=== PATIENT | male | born 1935 | race Caucasian/White ===

== ENCOUNTER 2016-10-24 20:34 | Inpatient (IN) | payer MEDICARE ==
[~2016-10-24] VITALS: Ht 182.9 cm; Wt 246.0 kg
[~2016-10-24 20:34] MED LIST: ASCO500 PO; ATOR20TA42 PO; CLON.1 PO; COUM5TAB PO; DORZ1SOL2 EACH EYE; FURO20TA PO; KCL20 PO; LATA0.00 EACH EYE; LEVA500T PO; METO25 PO; MULTCAP14 PO; XANA0.5T PO
[2016-10-24 20:42] VITALS: RESP 22; TEMP 101.7
[2016-10-24 20:50] VITALS: RESP 18; O2SAT 93
[2016-10-24 21:05] VITALS: BP 172/79; PULSE 113; RESP 22; TEMP 101.7; O2SAT 92
[2016-10-24 21:08] LABS: AUTOMATED NEUTROPHIL # 8.5 TH/MM3 (1.8-7.7); BASOPHIL % 0.1 % (0.0-2.0); EOSINOPHIL % 0.1 % (0.0-4.0); HEMATOCRIT 40.1 % (39.0-51.0); LYMPH % 3.6 % (9.0-44.0); LYMPHOCYTE # 0.3 TH/MM3 (1.0-4.8); MEAN CORPUSCULAR HEMOGLOBIN 33.5 PG (27.0-34.0); MEAN CORPUSCULAR HGB CONC 33.8 % (32.0-36.0); MONO % 4.7 % (0.0-8.0); NEUT % 91.5 % (16.0-70.0); PLATELET COUNT 165 TH/MM3 (150-450); RED BLOOD COUNT 4.05 MIL/MM3 (4.50-5.90); RED CELL DISTRIBUTION WIDTH 13.1 % (11.6-17.2); WHITE BLOOD COUNT 9.2 TH/MM3 (4.0-11.0)
--- NOTE | 2016-10-24 21:08 | PD ---
HPI Chief Complaint: Fever Time Seen by Provider: 21:02 Travel History International Travel<30 days: No Contact w/Intl Traveler<30days: No Traveled to known affect area: No History of Present Illness HPI The patient is an 81-year-old female that has had a fever since morning. The highest the temperature when at home was 102. He does not have it a cough, sore throat, ear pain but does have diarrhea. He denies any abdominal pain. He has had an appendectomy and a tumor removed from his abdomen. He does have nausea without vomiting. PFSH Past Medical History Hx Anticoagulant Therapy: Yes Arthritis: Yes (LOW BACK AND NECK) Blood Disorders: No Anxiety: Yes Depression: No Heart Rhythm Problems: Yes (AFIB) Cancer: Yes (PROSTATE ONLY-SEED IMPLANT) Cardiovascular Problems: Yes (A fib) High Cholesterol: Yes Chemotherapy: Yes Chest Pain: No Congestive Heart Failure: No Coronary Artery Disease: Yes Diabetes: No Endocrine: No Gastrointestinal Disorders: Yes (DIVERTICULITIS) GERD: No Glaucoma: No Genitourinary: Yes Hepatitis: No Hiatal Hernia: No Hypertension: Yes Immune Disorder: No Implanted Vascular Access Dvce: Yes Medical other: No Musculoskeletal: Yes (R KNEE REPLACEMENT) Neurologic: No Psychiatric: No Reproductive: No Respiratory: No Radiation Therapy: Yes (radiation seeds) Thyroid Disease: No Tetanus Vaccination: > 5 Years Influenza Vaccination: Yes Past Surgical History Abdominal Surgery: No AICD: No Body Medical Devices: STERNAL WIRES; R KNEE REPLACEMENT Cardiac Surgery: Yes (5 VESSEL HEART BYPASS) Coronary Artery Bypass Graft: Yes (x 5 vessel) Ear Surgery: No Endocrine Surgery: No Eye Surgery: Yes (bilat cataract) Genitourinary Surgery: Yes (PROSTATE CA-RADIATION SEEDS) Joint Replacement: Yes (RIGHT TOTAL KNEE) Oral Surgery: No Pacemaker: No Thoracic Surgery: No Other Surgery: Yes Social History Alcohol Use: No Tobacco Use: No Substance Use: No Allergies-Medications (Allergen,Severity, Reaction): Coded Allergies: onion (Verified Allergy, Severe, severe gi upset, 10/24/16) Reported Meds & Prescriptions Reported Meds & Active Scripts Active Kcl 20 Meq Tab (Potassium Chloride) 20 Meq Tabcr 20 Meq PO DAILY 30 Days Levaquin 500 Mg Tab (Levofloxacin) 500 Mg Tab 500 Mg PO DAILY 6 Days Furosemide 20 Mg Tab 40 Mg PO DAILY 30 Days Coumadin 5 mg (Warfarin Sodium) 5 Mg Tab 5 Mg PO DIRECTED 5mg tue/tue/tue//tue/tue and 7.5mg on sundays Metoprolol Tartrate 25 mg (Metoprolol Tartrate) 25 Mg Tab 25 Mg PO Q12HR Reported Xanax 0.5 mg (Alprazolam) Alprazolam 0.5 mg Tab 1 Tab PO HS PRN Catapres 0.1 mg (Clonidine HCl) 0.1 Mg Tab 1 Tab PO DIRECTED PRN Cosopt (Dorzolamide/Timolol) 5 Ml Soln 1 Drop EACH EYE BID Latanoprost 0.005 % Toshia 0.005 % EACH EYE HS Vitamin C 500 Mg Tab (Ascorbic Acid) 500 Mg Tab 1,000 Mg PO DAILY Multi For Him (Multivitamins/Minerals) For Him Cap 1 Cap PO DAILY Lipitor (Atorvastatin Calcium) 20 Mg Tab 20 Mg PO HS Review of Systems Except as stated in HPI: all other systems reviewed are Neg Physical Exam Narrative GENERAL: The patient is alert, oriented 3, moderately dehydrated appearing in slight apparent distress with his nausea. His vital signs show temperature 101.7 with respirations of 22 and pulse of 113 and blood pressure 172/79 with oximetry 92% on room air. SKIN: Focused skin assessment warm/dry. HEAD: Atraumatic. Normocephalic. EYES: Pupils equal and round. No scleral icterus. No injection or drainage. ENT: No nasal bleeding or discharge. Mucous membranes pink and moist. NECK: Trachea midline. No JVD. CARDIOVASCULAR: Regular rate and rhythm. No murmur appreciated. RESPIRATORY: No accessory muscle use. Clear to auscultation but the patient does not take deep respirations. Breath sounds equal bilaterally. GASTROINTESTINAL: Abdomen soft, non-tender, nondistended. Hepatic and splenic margins not palpable. MUSCULOSKELETAL: No obvious deformities. No clubbing. No cyanosis. No edema. NEUROLOGICAL: Awake and alert. No obvious cranial nerve deficits. Motor grossly within normal limits. Normal speech. PSYCHIATRIC: Appropriate mood and affect; insight and judgment normal. Data Data Last Documented VS Vital Signs Date Time Temp Pulse Resp B/P (MAP) Pulse Ox O2 Delivery O2 Flow Rate FiO2 10/24/16 21:14 101 18 170/74 (106) 93 Room Air 10/24/16 21:05 101.7 Orders Orders Complete Blood Count With Diff (10/24/16 20:47) Comprehensive Metabolic Panel (10/24/16 20:47) Urinalysis - C+S If Indicated (10/24/16 20:47) Lactic Acid Sepsis Protocol (10/24/16 20:47) Blood Culture (10/24/16 20:47) Iv Access Insert/Monitor (10/24/16 20:47) Oximetry (10/24/16 20:47) Blood Glucose (10/24/16 20:47) Chest, Pa & Lat (10/24/16 21:02) Electrocardiogram (10/24/16 20:47) Troponin I (10/24/16 21:56) B-Type Natriuretic Peptide (10/24/16 21:56) Labs Laboratory Tests Test 10/24/16 20:55 10/24/16 20:58 Lactic Acid Level 3.5 mmol/L White Blood Count 9.2 TH/MM3 Red Blood Count 4.05 MIL/MM3 Hemoglobin 13.6 GM/DL Hematocrit 40.1 % Mean Corpuscular Volume 99.0 FL Mean Corpuscular Hemoglobin 33.5 PG Mean Corpuscular Hemoglobin Concent 33.8 % Red Cell Distribution Width 13.1 % Platelet Count 165 TH/MM3 Mean Platelet Volume 7.4 FL Neutrophils (%) (Auto) 91.5 % Lymphocytes (%) (Auto) 3.6 % Monocytes (%) (Auto) 4.7 % Eosinophils (%) (Auto) 0.1 % Basophils (%) (Auto) 0.1 % Neutrophils # (Auto) 8.5 TH/MM3 Lymphocytes # (Auto) 0.3 TH/MM3 Monocytes # (Auto) 0.4 TH/MM3 Eosinophils # (Auto) 0.0 TH/MM3 Basophils # (Auto) 0.0 TH/MM3 CBC Comment DIFF FINAL Differential Comment Blood Urea Nitrogen 25 MG/DL Creatinine 1.40 MG/DL Random Glucose 127 MG/DL Total Protein 7.9 GM/DL Albumin 3.0 GM/DL Calcium Level 9.0 MG/DL Alkaline Phosphatase 62 U/L Aspartate Amino Transf (AST/SGOT) 26 U/L Alanine Aminotransferase (ALT/SGPT) 18 U/L Total Bilirubin 1.6 MG/DL Sodium Level 131 MEQ/L Potassium Level 3.8 MEQ/L Chloride Level 98 MEQ/L Carbon Dioxide Level 21.9 MEQ/L Anion Gap 11 MEQ/L Estimat Glomerular Filtration Rate 49 ML/MIN [facility] Medical Decision Making Medical Screen Exam Complete: Yes Emergency Medical Condition: Yes Medical Record Reviewed: Yes Interpretation(s) The chest x-ray shows right lower lobe pneumonia. The white count is 9200 with 92% neutrophils. The complete metabolic profile shows a total bilirubin 1.6, albumin 3.0, creatinine 1.4 with BUN 25 and sodium 131 but is otherwise normal. The lactic acid is 3.5. The EKG shows atrial fibrillation with response rate of [address] elevation or depression. Oximetry on room air is been running 92-93%. Differential Diagnosis Pneumonia, hypoxemia, sepsis, electrolyte disorder, hypo-/hyperglycemia, renal insufficiency, anemia Narrative Course The patient has a right lower lobe pneumonia. He also qualifies for severe sepsis. Plan: The patient is outpatient acquired pneumonia and will be put on Rocephin and Zithromax. Sepsis Criteria SIRS Criteria (2 or more): Temp > 100.9 or < 96.8, Heart rate over 90, RR > 20 or PaCO2 < 32 Severe Sepsis (+one): Lactate >2 Criteria Outcome: Meets severe sepsis criteria Physician Communication Physician Communication I discussed the patient with Dr. Wilkins, the patient will be admitted to him here at [place]. Diagnosis Primary Impression: Severe sepsis Additional Impression: Right lower lobe pneumonia Admitting Information Admitting Physician Requests: Admit Dagoberto Ellsworth MD Oct 24, 2016 21:08
[2016-10-24 21:14] VITALS: BP 170/74; PULSE 101; RESP 18; O2SAT 93
[2016-10-24 21:17] LABS: HEMO FLAGS DIFF FINAL
[2016-10-24 21:18] LABS: CHLORIDE 98 MEQ/L (98-107); POTASSIUM 3.8 MEQ/L (3.5-5.1); SODIUM (NA) 131 MEQ/L (136-145)
[2016-10-24 21:21] LABS: ANION GAP 11 MEQ/L (5-15); BICARBONATE 21.9 MEQ/L (21.0-32.0); BLOOD UREA NITROGEN 25 MG/DL (7-18)
[2016-10-24 21:24] LABS: ALT (GPT) 18 U/L (12-78); AST (GOT) 26 U/L (15-37)
[2016-10-24 21:25] LABS: GLOMERULAR FILTRATION RATE 49 ML/MIN (>89)
[2016-10-24 21:26] LABS: TOTAL BILIRUBIN ADULT 1.6 MG/DL (0.2-1.0)
[2016-10-24 21:27] LABS: ALKALINE PHOSPHATASE 62 U/L (45-117)
--- NOTE | 2016-10-24 21:40 | RADRPT ---
EXAM DATE/TIME: 10/24/2016 21:11 [facility] COMPARISON: CHEST SINGLE AP, October 06, 2015, 18:17. INDICATIONS : Shortness of breath. MEDICAL HISTORY : Hypertension. Coronary artery disease. SURGICAL HISTORY : CABG. ENCOUNTER: Initial ACUITY: 1 day PAIN SCORE: 0/10 LOCATION: Bilateral chest FINDINGS: AP and lateral views the chest were obtained and demonstrate new consolidative opacity in the right l ower lobe. The patient is status post median sternotomy there is moderate cardiomegaly. The left lung is clear. There is no perihilar edema. The bony thorax is otherwise unremarkable. CONCLUSION: 1. Consolidative opacity in the right lower lobe most characteristic of pneumonia. 2. Heart immediately with no perihilar edema. Jakob Camejo MD on October 24, 2016 at 21:37 Board Certified Radiologist. This report was verified electronically.
[2016-10-24] MEDS ORDERED: cefTRIAXone INJ 2,000 MG in SODIUM CHLORIDE 0.9% INJ 100 ML IV ONE (22:15)
[2016-10-24] MEDS ORDERED: SODIUM CHLORIDE 0.9% FLUSH 10 ML FLUSH IVF PRN (22:15)
[2016-10-24] MEDS ORDERED: AZITHROMYCIN INJ 500 MG in SODIUM CHLOR 0.9% 250 ML INJ 250 ML IV ONE (22:15)
[2016-10-24 22:21] VITALS: BP 184/92; PULSE 107; RESP 18; O2SAT 95
[2016-10-24 23:03] LABS: LACTIC ACID GHOST NOT REPORTABLE
[2016-10-24] MEDS ORDERED: HYDROmorphone HCL PF 1 MG/ML VIAL IV PRN (23:30)
[2016-10-24] MEDS ORDERED: cloNIDine HCL 0.1 MG TAB PO PRN (23:30)
[2016-10-24] MEDS ORDERED: NALOXONE HCL 0.4 MG/ML AMP IV PRN (23:30)
[2016-10-24] MEDS ORDERED: SODIUM CHLORIDE 0.9% FLUSH 10 ML FLUSH IV FLUSH PRN (23:30)
[2016-10-24] MEDS ORDERED: LACTULOSE SYRUP 20 GM/30 ML CUP PO PRN (23:30)
[2016-10-24] MEDS ORDERED: BISACODYL 10 MG SUPP RECTAL PRN (23:30)
[2016-10-24] MEDS ORDERED: ONDANSETRON HCL 4 MG/2 ML VIAL IVP PRN (23:30)
[2016-10-24] MEDS ORDERED: SENNOSIDES 8.6 MG TAB PO PRN (23:30)
[2016-10-24] MEDS ORDERED: MAGNESIUM HYDROXIDE SUSP 30 ML CUP PO PRN (23:30)
[2016-10-24] MEDS ORDERED: ALPRAZolam 0.5 MG TAB PO PRN (23:30)
--- NOTE | 2016-10-24 23:34 | HHI.HP ---
HPI Service [facility] Hospitalists Primary Care Physician Leonardo Negrete MD Admission Diagnosis severe sepsis, right lower lobe pneumonia Chief Complaint: fever chills since Travel History International Travel<30 Days: No Contact w/Intl Traveler <30 Da: No Traveled to Known Affected Are: No Sepsis Criteria SIRS Criteria (2 or more): Temp > 100.9 or < 96.8, Heart rate over 90 Sepsis Criteria (SIRS+source): Infect source susp/known Severe Sepsis (+one): Lactate >2 History of Present Illness The patient is an 81-year-old female that has had a fever since morning. The highest the temperature when at home was 102. He does not have it a cough, sore throat, ear pain but does have some loose stool. He denies any abdominal pain. He has had an appendectomy and a tumor removed from his abdomen. He does have nausea without vomiting. Patient stated went to a dentist and had xray showed some abnormality rt upper jaw and went to oral surgeon and said needed further evaluation. Patient also complaining overall not feeling well. In er had chest xray showing rt lower lobe pneumonia. Will admit for IV antibiotics and further work up will need CT jaw for evaluation of ? abnormality in rt jaw. Patient will also get CT abd/pelvis for evaluation of loose stool. Review of Systems Constitutional: COMPLAINS OF: Diaphoretic episodes, Fatigue, Fever, Chills Past Family Social History Past Medical History atrial fib,djd,prostate ca with seed implant hypertension,hyperlipidemia,cad diverticulitis uti Past Surgical History rt knee ,abd surgery 5 vessel bypass Reported Medications Kcl 20 Meq Tab (Potassium Chloride) 20 Meq Tabcr 20 Meq PO DAILY 30 Days Levaquin 500 Mg Tab (Levofloxacin) 500 Mg Tab 500 Mg PO DAILY 6 Days Furosemide 20 Mg Tab 40 Mg PO DAILY 30 Days Coumadin 5 mg (Warfarin Sodium) 5 Mg Tab 5 Mg PO DIRECTED 5mg tue/tue/tue//tue/tue and 7.5mg on sundays Metoprolol Tartrate 25 mg (Metoprolol Tartrate) 25 Mg Tab 25 Mg PO Q12HR Reported Xanax 0.5 mg (Alprazolam) Alprazolam 0.5 mg Tab 1 Tab PO HS PRN Catapres 0.1 mg (Clonidine HCl) 0.1 Mg Tab 1 Tab PO DIRECTED PRN Cosopt (Dorzolamide/Timolol) 5 Ml Soln 1 Drop EACH EYE BID Latanoprost 0.005 % Toshia 0.005 % EACH EYE HS Vitamin C 500 Mg Tab (Ascorbic Acid) 500 Mg Tab 1,000 Mg PO DAILY Multi For Him (Multivitamins/Minerals) For Him Cap 1 Cap PO DAILY Lipitor (Atorvastatin Calcium) 20 M Allergies: Coded Allergies: onion (Verified Allergy, Severe, severe gi upset, 10/24/16) Social History NS,ND Physical Exam Vital Signs Vital Signs Date Time Temp Pulse Resp B/P (MAP) Pulse Ox O2 Delivery O2 Flow Rate FiO2 10/24/16 22:21 107 18 184/92 (122) 95 Room Air 10/24/16 21:14 101 18 170/74 (106) 93 Room Air 10/24/16 21:05 101.7 113 22 172/79 (110) 92 Room Air 10/24/16 20:55 22 92 10/24/16 20:50 18 93 Room Air 10/24/16 20:42 101.7 22 Physical Exam GENERAL: This is a well-nourished, well-developed patient, in no apparent distress. SKIN: No rashes, ecchymoses or lesions. Cool and dry. HEAD: Atraumatic. Normocephalic. No temporal or scalp tenderness. EYES: Pupils equal round and reactive. Extraocular motions intact. No scleral icterus. No injection or drainage. ENT: Nose without bleeding, purulent drainage or septal hematoma. Throat without erythema, tonsillar hypertrophy or exudate. Uvula midline. Airway patent. NECK: Trachea midline. No JVD or lymphadenopathy. Supple, nontender, no meningeal signs. CARDIOVASCULAR: Regular rate and rhythm without murmurs, gallops, or rubs. RESPIRATORY: Clear to auscultation. Breath sounds decrease rt lower lobe with rhonchi base GASTROINTESTINAL: Abdomen soft, non-tender, nondistended. No hepato-splenomegaly , or palpable masses. No guarding. MUSCULOSKELETAL: Extremities without clubbing, cyanosis, or edema. No joint tenderness, effusion, or edema noted. No calf tenderness. Negative Homans sign bilaterally. NEUROLOGICAL: Awake and alert. Cranial nerves II through XII intact. Motor and sensory grossly within normal limits. Five out of 5 muscle strength in all muscle groups. Normal speech. Laboratory Laboratory Tests Test 10/24/16 20:55 10/24/16 20:58 Lactic Acid Level 3.5 B-Type Natriuretic Peptide 231 White Blood Count 9.2 Red Blood Count 4.05 Hemoglobin 13.6 Hematocrit 40.1 Mean Corpuscular Volume 99.0 Mean Corpuscular Hemoglobin 33.5 Mean Corpuscular Hemoglobin Concent 33.8 Red Cell Distribution Width 13.1 Platelet Count 165 Mean Platelet Volume 7.4 Neutrophils (%) (Auto) 91.5 Lymphocytes (%) (Auto) 3.6 Monocytes (%) (Auto) 4.7 Eosinophils (%) (Auto) 0.1 Basophils (%) (Auto) 0.1 Neutrophils # (Auto) 8.5 Lymphocytes # (Auto) 0.3 Monocytes # (Auto) 0.4 Eosinophils # (Auto) 0.0 Basophils # (Auto) 0.0 CBC Comment DIFF FINAL Differential Comment Blood Urea Nitrogen 25 Creatinine 1.40 Random Glucose 127 Total Protein 7.9 Albumin 3.0 Calcium Level 9.0 Alkaline Phosphatase 62 Aspartate Amino Transf (AST/SGOT) 26 Alanine Aminotransferase (ALT/SGPT) 18 Total Bilirubin 1.6 Sodium Level 131 Potassium Level 3.8 Chloride Level 98 Carbon Dioxide Level 21.9 Anion Gap 11 Estimat Glomerular Filtration Rate 49 Troponin I 0.05 Date/Time Source Procedure Growth Status 10/24/16 20:56 Blood Peripheral Aerobic Blood Culture Pending Received 10/24/16 20:56 Blood Peripheral Anaerobic Blood Culture Pending Received Result Diagram: 10/24/16205710/24/162057 Imaging Last 24 hours Impressions Chest X-Ray 10/24/162101 Signed Impressions: Service Date/Time: Monday, October 24, 2016 21:11 - CONCLUSION: 1. Consolidative opacity in the right lower lobe most characteristic of pneumonia. 2. Heart immediately with no perihilar edema. Jakob Camejo MD Course in er started on rocephin and zithromax Caprini VTE Risk Assessment Caprini VTE Risk Assessment: Mod/High Risk (score >= 2) Caprini Risk Assessment Model Point Value = 1 Point Value = 2 Point Value = 3 Point Value = 5 Age 41-60 Minor surgery BMI > 25 kg/m2 Swollen legs Varicose veins or History of unexplained or recurrent spontaneous Oral contraceptives or hormone replacement Sepsis (< 1 month) Serious lung disease, including pneumonia (< 1 month) Abnormal pulmonary function Acute myocardial infarction Congestive heart failure (< 1 month) History of inflammatory bowel disease Medical patient at bed rest Age 61-74 Arthroscopic surgery Major open surgery (> 45 min) Laparoscopic surgery (> 45 min) Malignancy Confined to bed (> 72 hours) Immobilizing plaster cast Central venous access Age >= 75 History of VTE Family history of VTE Factor V Leiden Prothrombin [id number] Lupus anticoagulant Anticardiolipin antibodies Elevated serum homocysteine Heparin-induced thrombocytopenia Other congenital or acquired thrombophilia Stroke (< 1 month) Elective arthroplasty Hip, pelvis, or leg fracture Acute spinal cord injury (< 1 month) Prophylaxis Regimen Total Risk Factor Score Risk Level Prophylaxis Regimen 0-1 Low Early ambulation 2 Moderate Order ONE of the following: *Sequential Compression Device (SCD) *Heparin 5000 units SQ BID 3-4 Higher Order ONE of the following medications: *Heparin 5000 units SQ TID *Enoxaparin/Lovenox 40 mg SQ daily (WT < 150 kg, CrCl > 30 mL/min) *Enoxaparin/Lovenox 30 mg SQ daily (WT < 150 kg, CrCl > 10-29 mL/min) *Enoxaparin/Lovenox 30 mg SQ BID (WT < 150 kg, CrCl > 30 mL/min) AND/OR *Sequential Compression Device (SCD) 5 or more Highest Order ONE of the following medications: *Heparin 5000 units SQ TID (Preferred with Epidurals) *Enoxaparin/Lovenox 40 mg SQ daily (WT < 150 kg, CrCl > 30 mL/min) *Enoxaparin/Lovenox 30 mg SQ daily (WT < 150 kg, CrCl > 10-29 mL/min) *Enoxaparin/Lovenox 30 mg SQ BID (WT < 150 kg, CrCl > 30 mL/min) AND *Sequential Compression Device (SCD) Assessment and Plan Problem List: (1) Right lower lobe pneumonia ICD Codes: J18.1 - Lobar pneumonia, unspecified organism Status: Acute Plan: continue rocephin and zithromax IV (2) Jaw symptom ICD Codes: R68.84 - Jaw pain Plan: not sure what was seen on dental xray will get CT jaw for evaluation (3) Severe sepsis ICD Codes: A41.9 - Sepsis, unspecified organism; R65.20 - Severe sepsis without septic shock Status: Acute Plan: follow labs continue antibiotics (4) Atrial fibrillation, chronic ICD Codes: I48.2 - Chronic atrial fibrillation Status: Chronic Plan: continue current meds follow inr (5) Generalized weakness ICD Codes: R53.1 - Weakness Status: Acute Plan: continue IV fluid (6) Diarrhea ICD Codes: R19.7 - Diarrhea, unspecified Plan: did have some loose stool will check stool studies may need CT abdomen Assessment and Plan further plan as case develops Code Status full Discussed Condition With patient and Physician Certification 2 Midnight Certification Type: Admission for Inpatient Services Order for Inpatient Services The services are ordered in accordance with Medicare regulations or non- Medicare payer requirements, as applicable. In the case of services not specified as inpatient-only, they are appropriately provided as inpatient services in accordance with the 2-midnight benchmark. Estimated LOS (days): 3 3 days is the estimated time the patient will need to remain in the hospital, assuming treatment plan goals are met and no additional complications. Post-Hospital Plan: Not yet determined Leonardo Negrete MD Oct 24, 2016 23:34
[2016-10-25] VITALS (17 sets, daily range): BP systolic 104–190; BP diastolic 60–118; PULSE 79–108; RESP 17–28; TEMP 98.3–101.8; O2SAT 90–97
[2016-10-25] MEDS ORDERED: ASCO500T PO (00:04)
[2016-10-25] MEDS ORDERED: POTA-163 PO (00:04)
[2016-10-25] MEDS ORDERED: ALPR0.5T3 PO (00:04)
[2016-10-25] MEDS ORDERED: CLON0.1T PO (00:04)
[2016-10-25] MEDS ORDERED: COUM7.5T PO (00:04)
[2016-10-25] MEDS ORDERED: DORZ2SOL7 EACH EYE (00:04)
[2016-10-25] MEDS ORDERED: COUM5TAB PO (00:04)
[2016-10-25] MEDS ORDERED: FURO1TAB60 PO (00:04)
[2016-10-25] MEDS ORDERED: METO25TA3 PO (00:04)
[2016-10-25] MEDS ORDERED: LATA0.002 EACH EYE (00:04)
[2016-10-25] MEDS ORDERED: MULT-65 PO (00:04)
[2016-10-25] MEDS ORDERED: ATOR20TA15 PO (00:04)
[2016-10-25] MEDS: SODIUM CHLOR 0.45% 1000 ML INJ 1,000 ML IV SCH ×2 (01:09→13:54)
[2016-10-25] MEDS: ACETAMINOPHEN 325 MG TAB PO PRN ×3 (05:30→20:04)
[2016-10-25 06:50] LABS: AUTOMATED NEUTROPHIL # 8.5 TH/MM3 (1.8-7.7); HEMATOCRIT 34.1 % (39.0-51.0); LYMPH % 3.4 % (9.0-44.0); LYMPHOCYTE # 0.3 TH/MM3 (1.0-4.8); MEAN CELL VOLUME 97.2 FL (80.0-100.0); MEAN CORPUSCULAR HGB CONC 34.9 % (32.0-36.0); MONO % 4.8 % (0.0-8.0); NEUT % 91.8 % (16.0-70.0); PLATELET COUNT 131 TH/MM3 (150-450); RED BLOOD COUNT 3.51 MIL/MM3 (4.50-5.90); RED CELL DISTRIBUTION WIDTH 12.7 % (11.6-17.2); WHITE BLOOD COUNT 9.2 TH/MM3 (4.0-11.0)
[2016-10-25 06:57] LABS: CHLORIDE 99 MEQ/L (98-107); POTASSIUM 3.3 MEQ/L (3.5-5.1); SODIUM (NA) 133 MEQ/L (136-145)
[2016-10-25 06:58] LABS: HEMO FLAGS DIFF FINAL
[2016-10-25 07:00] LABS: INTERNATIONAL NORMALIZED RATIO 2.8 RATIO; PROTHROMBIN TIME - PATIENT 32.1 SEC (9.8-11.6)
[2016-10-25 07:02] LABS: ANION GAP 11 MEQ/L (5-15); BICARBONATE 22.9 MEQ/L (21.0-32.0); BLOOD UREA NITROGEN 26 MG/DL (7-18)
[2016-10-25 07:05] LABS: ALT (GPT) 18 U/L (12-78); AST (GOT) 31 U/L (15-37); GLOMERULAR FILTRATION RATE 58 ML/MIN (>89)
[2016-10-25 07:07] LABS: TOTAL BILIRUBIN ADULT 1.3 MG/DL (0.2-1.0)
[2016-10-25 07:08] LABS: ALKALINE PHOSPHATASE 50 U/L (45-117)
[2016-10-25] MEDS ORDERED: FUROSEMIDE 20 MG TAB PO SCH (09:00)
[2016-10-25] MEDS ORDERED: DORZOLAMIDE/TIMOLOL OPTH SOLN 10 ML BTL EACH EYE SCH (09:00)
[2016-10-25] MEDS: DORZOLAMIDE/TIMOLOL OPTH SOLN 10 ML BTL EACH EYE SCH ×2 (09:00→20:03)
[2016-10-25] MEDS ORDERED: METOPROLOL TARTRATE 25 MG TAB PO SCH (09:00)
[2016-10-25] MEDS: DOCUSATE SODIUM 50 MG/SENNA 8.6 MG TAB PO SCH ×2 (09:00→20:04)
[2016-10-25] MEDS ORDERED: ASCORBIC ACID 500 MG TAB PO SCH (09:00)
[2016-10-25] MEDS ORDERED: POTASSIUM CHLORIDE 20 MEQ CONTROLLED RELEASE TAB PO SCH ×2 (09:00)
[2016-10-25] MEDS ORDERED: MULTIVITAMINS/MINERALS THERAPEUTIC TAB PO SCH (09:00)
[2016-10-25] MEDS: SODIUM CHLORIDE 0.9% FLUSH 10 ML FLUSH IV FLUSH SCH ×2 (09:00→20:05)
[2016-10-25] MEDS: MULTIVITAMINS/MINERALS THERAPEUTIC TAB PO SCH (09:51)
[2016-10-25] MEDS: METOPROLOL TARTRATE 25 MG TAB PO SCH ×2 (09:51→20:05)
[2016-10-25] MEDS: ASCORBIC ACID 500 MG TAB PO SCH (09:51)
[2016-10-25] MEDS: FUROSEMIDE 40 MG TAB PO SCH (09:51)
--- NOTE | 2016-10-25 11:14 | HHI.PR ---
Subjective Remarks Patient about the same , says he is a little better,she brought a copy of xray from dentist and may have abscess in rt jaw area discussed with radiology will get CT with contrast to evaluate. For now continue rocephin and zithromax . Objective Vitals GENERAL: SKIN: Warm and dry. HEAD: Atraumatic. Normocephalic. EYES: Pupils equal and round. No scleral icterus. No injection or drainage. ENT: No nasal bleeding or discharge. Mucous membranes pink and moist. NECK: Trachea midline. No JVD. CARDIOVASCULAR: Regular rate and rhythm. RESPIRATORY: No accessory muscle use. Decrease breath sounds and rhonchi rt base GASTROINTESTINAL: Abdomen soft, non-tender, nondistended. Hepatic and splenic margins not palpable. MUSCULOSKELETAL: Extremities without clubbing, cyanosis, or edema. No obvious deformities. NEUROLOGICAL: Awake and alert. No obvious cranial nerve deficits. Motor grossly within normal limits. Five out of 5 muscle strength in the arms and legs. Normal speech. PSYCHIATRIC: Appropriate mood and affect; insight and judgment normal. Vital Signs Date Time Temp Pulse Resp B/P (MAP) Pulse Ox O2 Delivery O2 Flow Rate FiO2 10/25/16 10:27 79 10/25/16 08:00 99.4 108 18 136/72 (93) 92 10/25/16 04:00 101.8 107 28 158/75 (102) 90 10/25/16 02:55 94 21 10/25/16 01:00 97 10/25/16 00:40 106 18 94 10/25/16 00:17 98 18 190/77 (114) 94 Room Air 10/25/16 00:00 98.8 84 22 167/118 (134) 94 10/24/16 22:21 107 18 184/92 (122) 95 Room Air 10/24/16 21:14 101 18 170/74 (106) 93 Room Air 10/24/16 21:05 101.7 113 22 172/79 (110) 92 Room Air 10/24/16 20:55 22 92 10/24/16 20:50 18 93 Room Air 10/24/16 20:42 101.7 22 Result Diagram: 10/25/16 0637 10/25/16 0637 Imaging Last 24 hours Impressions Chest X-Ray 10/24/162101 Signed Impressions: Service Date/Time: Monday, October 24, 2016 21:11 - CONCLUSION: 1. Consolidative opacity in the right lower lobe most characteristic of pneumonia. 2. Heart immediately with no perihilar edema. Jakob Camejo MD A/P Problem List: (1) Right lower lobe pneumonia ICD Codes: J18.1 - Lobar pneumonia, unspecified organism Status: Acute Plan: continue rocephin and zithromax IV (2) Jaw symptom ICD Codes: R68.84 - Jaw pain Plan: not sure what was seen on dental xray will get CT jaw for evaluation (3) Severe sepsis ICD Codes: A41.9 - Sepsis, unspecified organism; R65.20 - Severe sepsis without septic shock Status: Acute Plan: follow labs continue antibiotics (4) Atrial fibrillation, chronic ICD Codes: I48.2 - Chronic atrial fibrillation Status: Chronic Plan: continue current meds follow inr (5) Generalized weakness ICD Codes: R53.1 - Weakness Status: Acute Plan: continue IV fluid (6) Diarrhea ICD Codes: R19.7 - Diarrhea, unspecified Plan: did have some loose stool will check stool studies may need CT abdomen Leonardo Negrete MD Oct 25, 2016 11:14
[2016-10-25] MEDS ORDERED: IOHEXOL 350 MG/ML 10 ML VIAL (for RAD DIAG) IVCONTRAST ONE (13:42)
--- NOTE | 2016-10-25 13:57 | RADRPT ---
EXAM DATE/TIME: 10/25/2016 13:25 [facility] COMPARISON: No previous studies available for comparison. INDICATIONS : Right mandible abscess and left sided cyst per patient dental xray. IV CONTRAST: 85 cc Omnipaque 350 (iohexol) IV RADIATION DOSE: 22.64 CTDIvol (mGy) MEDICAL HISTORY : Cardiovascular disease. Hypertension. Carcinoma, prostate. SURGICAL HISTORY : CABG ENCOUNTER: Initial ACUITY: 1 day PAIN SCALE: 4/10 LOCATION: Bilateral TECHNIQUE: Volumetric scanning of the neck was performed. Using automated exposure control and adjustment of th e mA and/or kV according to patient size, radiation dose was kept as low as reasonably achievable to obtain optimal diagnostic quality images. DICOM format image data is available electronically for r eview and comparison. FINDINGS: Extensive artifact is present about the right mandible. I don't see as soft tissue abscess. I canno t exclude the bony process. There is an oblong cystic mass in the angle of left mandible that is expanding bone rather than destr oying bone. The nasopharynx and oropharynx are unremarkable Reason for vocal cords appears normal There is no adenopathy appreciated. CONCLUSION: I cannot confirm an abscess. Abnormal mass expanding bone left mandible as described above. Terry Uribe MD FACR on October 25, 2016 at 13:52 Board Certified Radiologist. This report was verified electronically.
[2016-10-25 14:48] LABS: BLOOD, URINE SMALL (NEG); GLUCOSE,URINE NEG (NEG); KETONE, URINE NEG (NEG); NITRITE,URINE NEG (NEG)
[2016-10-25 14:54] LABS: URINE COLOR YELLOW (YELLW/STRAW)
[2016-10-25 14:55] LABS: MUCUS URINE FEW /lpf (OCC)
[2016-10-25 14:56] LABS: WBC, URINE 0-2 /hpf (0-5); WHITE BLOOD CELL CAST, URINE 0-2 /lpf
[2016-10-25 14:57] LABS: COMMENT (UR) CULT NOT INDICATED; CULTURE IF INDICATED CULT NOT INDICATED; RBC, URINE 0-3 /hpf (0-3); SQUAMOUS EPITHELIAL CELL URINE 0-5 /hpf (0-5)
[2016-10-25] MEDS: RESP: ALBUTEROL 2.5 MG/IPRATROPIUM 0.5 MG NEB (PRN) NEB ×2 (15:13→22:13)
[2016-10-25] MEDS ORDERED: WARFARIN SOD 5 MG TAB PO SCH ×3 (16:00)
[2016-10-25] MEDS: LATANOPROST 0.005% OPHT SOLN 2.5 ML BTL EACH EYE SCH (20:03)
[2016-10-25] MEDS: ALPRAZolam 0.5 MG TAB PO SCH (20:04)
[2016-10-25] MEDS: ATORVASTATIN 20 MG TAB PO SCH (20:04)
[2016-10-25] MEDS: POTASSIUM CHLORIDE 20 MEQ CONTROLLED RELEASE TAB PO SCH (20:04)
--- NOTE | 2016-10-25 20:08 | EKG ---
Date Performed: 10/24/2016 Time Performed: 20:47:16 PTAGE: 81 years EKG: ATRIAL FIBRILLATION WITH RAPID VENTRICULAR RESPONSE INFERIOR MYOCARDIAL INFARCTION ABNORMAL ECG PREVIOUS TRACING : 09/13/2015 08.49 DOCTOR: Felix Alberto Interpretating Date/Time 10/25/2016 20:04:59
--- NOTE | 2016-10-25 20:35 | MB ---
cc: YANG VIZCARRA DATE OF CONSULTATION 10/25/[address] Negrete. REASON FOR CONSULTATION Evaluate for pneumonia. HISTORY OF PRESENT ILLNESS Mr. Lang is a pleasant 81-year-old male with history of coronary disease status post CABG times 5 done about 20 years ago. He has history of hypertension, CA of the prostate. The patient recently went to see his dentist, was sent to the oral surgeon. He was found have possible abscess in two teeth on the right side and abnormality of the left jaw. Because of fever the patient came to the hospital. He had a workup done. IMAGING His chest x-ray shows he has right lung pneumonia. CT scan of the neck shows abnormal mass, expanding bone in the left mandible. Abscess is not ruled out. LABORATORY DATA His blood cultures so far are negative. His INR is 2.8. CBC showed WBC count of 9.12, hemoglobin 11.9, hematocrit 34.1, MCV 97, platelet count 131. Sodium 133, potassium 3.3, chloride 99, CO2 22, BUN 26, creatinine 1.0. PAST MEDICAL HISTORY Significant for: 1. A history of coronary disease status post CABG. 2. Cancer of the prostate status post seed implant. 3. Hypertension. 4. Atrial fibrillation. 5. Hyperlipidemia. 6. History of knee surgery. 7. Bilateral cataract surgery. MEDICATIONS He is currently takin. Coumadin 7.5 mg a day. 2. Zithromax 500 milligrams. 3. Rocephin 1 gram q.24 h. 4. Xanax 0.5 mg at nighttime. 5. Lipitor 20 mg a day. 6. Coumadin 5 milligrams. 7. Metoprolol 25 mg twice a day. 8. Lasix 40 mg. ALLERGIES NO KNOWN DRUG ALLERGIES. HE DOES NOT TOLERATE ONIONS. SOCIAL HISTORY He is . 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 He has history of smoking which he quit 50 years ago. No alcohol abuse. FAMILY HISTORY He has two children. REVIEW OF SYSTEMS Normally he is up, around and active. Weight is stable. No deep venous thrombosis or pulmonary embolism. No seizure or epilepsy. PHYSICAL EXAMINATION GENERAL: Well built, well-nourished male not in acute distress. VITAL SIGNS: Blood pressure 187/96, heart rate 103, respiration 18, temperature 101.5, now it is 98.3 HEENT: Pupils are equal and reactive to light. He has bilateral cataract surgery done. Oral mucosa, nasal mucosa normal. NECK: Supple. JVP not raised. CHEST: Air entry equal bilaterally. He has rales on the right base. CARDIOVASCULAR: S1-S2 normal. ABDOMEN: Benign. EXTREMITIES: No edema. IMPRESSION 1. Right lung pneumonia likely community-acquired pneumonia. Need to rule out atypical pneumonia. 2. Fever. 3. Left mandibular mass. 4. Hypertension. 5. History of coronary artery disease status post CABG. 6. History of cancer of the prostate. PLAN The patient to be transferred to main hospital for evaluation by oral surgeon. We will continue antibiotics Rocephin and Zithromax. Check his culture. Also sent for urine Legionella and pneumococcal antigen and sputum for culture and sensitivity. Further treatment will depend on the course in the hospital. Thank you Dr. Negrete for this consultation. MD CELIA Middleton/NAYAN /6:05 PM /8:11 PM
[2016-10-25] MEDS ORDERED: LATANOPROST 0.005% OPHT SOLN 2.5 ML BTL EACH EYE SCH (21:00)
[2016-10-25] MEDS ORDERED: ATORVASTATIN 20 MG TAB PO SCH (21:00)
[2016-10-25] MEDS: cefTRIAXone INJ 1,000 MG in SODIUM CHLORIDE 0.9% INJ 100 ML IV SCH (21:37)
[2016-10-25] MEDS: AZITHROMYCIN INJ 500 MG in SODIUM CHLOR 0.9% 250 ML INJ 250 ML IV SCH (23:46)
[2016-10-26] VITALS (13 sets, daily range): BP systolic 104–186; BP diastolic 58–87; PULSE 76–131; RESP 17–20; TEMP 97.8–101.9; O2SAT 93–97
[2016-10-26] MEDS: ACETAMINOPHEN 325 MG TAB PO PRN ×2 (03:32→10:36)
[2016-10-26] MEDS: RESP: ALBUTEROL 2.5 MG/IPRATROPIUM 0.5 MG NEB (PRN) NEB (03:43)
[2016-10-26] MEDS ORDERED: FUROSEMIDE 40 MG/4 ML VIAL IV ONE (04:15)
[2016-10-26] MEDS: DORZOLAMIDE/TIMOLOL OPTH SOLN 10 ML BTL EACH EYE SCH ×2 (08:05→21:00)
[2016-10-26] MEDS: MULTIVITAMINS/MINERALS THERAPEUTIC TAB PO SCH (08:06)
[2016-10-26] MEDS: POTASSIUM CHLORIDE 20 MEQ CONTROLLED RELEASE TAB PO SCH ×2 (08:06→21:15)
[2016-10-26] MEDS: FUROSEMIDE 40 MG TAB PO SCH (08:06)
[2016-10-26] MEDS: ASCORBIC ACID 500 MG TAB PO SCH (08:06)
[2016-10-26] MEDS: METOPROLOL TARTRATE 25 MG TAB PO SCH ×2 (08:07→21:15)
[2016-10-26] MEDS: DOCUSATE SODIUM 50 MG/SENNA 8.6 MG TAB PO SCH ×2 (08:07→21:16)
[2016-10-26] MEDS: SODIUM CHLORIDE 0.9% FLUSH 10 ML FLUSH IV FLUSH SCH ×2 (08:09→21:16)
[2016-10-26 08:13] LABS: BICARBONATE 20.2 MEQ/L (21.0-32.0); POTASSIUM 3.5 MEQ/L (3.5-5.1)
[2016-10-26 08:25] LABS: BASOPHIL % 0.1 % (0.0-2.0); EOSINOPHIL % 0.1 % (0.0-4.0); HEMATOCRIT 37.3 % (39.0-51.0); HEMO FLAGS DIFF FINAL; LYMPH % 3.3 % (9.0-44.0); LYMPHOCYTE # 0.4 TH/MM3 (1.0-4.8); MEAN CELL VOLUME 101.2 FL (80.0-100.0); MEAN CORPUSCULAR HEMOGLOBIN 34.3 PG (27.0-34.0); MEAN CORPUSCULAR HGB CONC 33.9 % (32.0-36.0); NEUT % 93.5 % (16.0-70.0); PLATELET COUNT 147 TH/MM3 (150-450); RED BLOOD COUNT 3.68 MIL/MM3 (4.50-5.90); RED CELL DISTRIBUTION WIDTH 14.4 % (11.6-17.2); WHITE BLOOD COUNT 10.7 TH/MM3 (4.0-11.0)
--- NOTE | 2016-10-26 09:34 | HHI.PR ---
Subjective Remarks notes some shaking/rigors x 2 days no sob complaints poor po intake Objective Vitals weak appearing following commands heart reg lung lower lung field wheezing ruthann abd s/nt ext no edema Vital Signs Date Time Temp Pulse Resp B/P (MAP) Pulse Ox O2 Delivery O2 Flow Rate FiO2 10/26/16 06:38 97.8 92 109/71 (84) 10/26/16 04:25 100.0 10/26/16 03:55 101.9 122 18 186/83 (117) 94 10/26/16 03:47 94 Nasal Cannula 3.00 10/26/16 00:00 76 10/26/16 00:00 99.8 93 17 123/72 (89) 97 10/25/16 22:15 94 Nasal Cannula 3.00 10/25/16 22:00 100.5 94 17 104/60 (75) 97 10/25/16 21:50 79 10/25/16 19:58 99.7 102 20 149/97 (114) 93 10/25/16 19:25 93 Nasal Cannula 2.00 10/25/16 19:00 104 10/25/16 16:19 98.3 10/25/16 16:00 101.5 103 18 187/96 (126) 92 10/25/16 15:15 91 21 10/25/16 12:00 98.5 98 17 128/79 (95) 95 10/25/16 10:27 79 Result Diagram: 10/26/16 0651 10/25/16 0637 Imaging Last 24 hours Impressions Chest X-Ray 10/24/16 210 Signed Impressions: Service Date/Time: Monday, October 24, 2016 21:11 - CONCLUSION: 1. Consolidative opacity in the right lower lobe most characteristic of pneumonia. 2. Heart immediately with no perihilar edema. Jakob Camejo MD A/P Problem List: (1) Right lower lobe pneumonia ICD Codes: J18.1 - Lobar pneumonia, unspecified organism Status: Acute Plan: Pt admitted for concern of left mandible mass on ct imaging looks expansile not destructive of bone. right lung pna. concern for bacteremia. pt described some hemoptysis this AM general weakness urine retention dehydration. pulmonary consulted. cont abx. f/u cx and adjust as needed. Site Tour spirometer PT eval dvt prophylaxis f/u pending bmp, inr. prelim inr over 6...recheck pending. hold coumadin. monitor urine output. mtz if needed. OMFS consulted to eval mandible mass. (2) Atrial fibrillation, chronic ICD Codes: I48.2 - Chronic atrial fibrillation Status: Chronic Plan: cont current meds hold coumadin. (3) Generalized weakness ICD Codes: R53.1 - Weakness Status: Acute Plan: continue IV fluid (4) HTN (hypertension) ICD Codes: I10 - Essential (primary) hypertension Status: Chronic (5) H/O prostate cancer ICD Codes: Z85.46 - Personal history of malignant neoplasm of prostate Status: Resolved Theo Dumont MD Oct 26, 2016 09:34
[2016-10-26] MEDS: RESP: ALBUTEROL 2.5 MG/IPRATROPIUM 0.5 MG NEB (SCH) NEB ×2 (13:10→20:46)
[2016-10-26 13:33] LABS: PROTHROMBIN TIME - PATIENT 99.7 SEC (9.8-11.6)
[2016-10-26 13:41] LABS: INTERNATIONAL NORMALIZED RATIO 8.2 RATIO
[2016-10-26] MEDS ORDERED: PHYTONADIONE 5 MG TAB PO ONE (16:15)
[2016-10-26] MEDS ORDERED: GADODIAMIDE PF 287 MG/ML 20 ML VIAL (for RAD MRI) IV PUSH ONE (18:41)
--- NOTE | 2016-10-26 19:29 | HHI.PR ---
Subjective Remarks 81 YOWM with RLL Pneumonia,Left Mandibular mass,HTN Feels better Occ cough no fever no CP Objective Vital Signs Vital Signs Date Time Temp Pulse Resp B/P (MAP) Pulse Ox O2 Delivery O2 Flow Rate FiO2 10/26/16 16:01 99.3 110 20 104/60 (75) 93 10/26/16 12:35 100.7 97 18 107/58 (74) 95 10/26/16 11:59 95 Nasal Cannula 3.00 10/26/16 10:02 100.2 10/26/16 08:00 98.9 118 18 124/84 (97) 93 10/26/16 06:38 97.8 92 109/71 (84) 10/26/16 04:25 100.0 10/26/16 03:55 101.9 122 18 186/83 (117) 94 10/26/16 03:47 94 Nasal Cannula 3.00 10/26/16 00:00 76 10/26/16 00:00 99.8 93 17 123/72 (89) 97 10/25/16 22:15 94 Nasal Cannula 3.00 10/25/16 22:00 100.5 94 17 104/60 (75) 97 10/25/16 21:50 79 10/25/16 19:58 99.7 102 20 149/97 (114) 93 I/O 10/25/16 10/25/16 10/25/16 10/26/16 10/26/16 10/26/16 07:00 15:00 23:00 07:00 15:00 23:00 Intake Total 250 ml 1000 ml 453 ml 360 ml Output Total 1000 ml 200 ml Balance 250 ml 1000 ml -547 ml -200 ml 360 ml Intake Oral 360 ml IV Total 250 ml 1000 ml 453 ml Output Urine Total 1000 ml 200 ml Bladder Scan Volume Amount 450 ml # Voids 3 1 2 # Bowel Movements 2 Result Diagram: 10/26/16 0651 10/26/16 1240 Objective Remarks GENERAL: WBWn WM, NAD SKIN: Warm and dry. HEAD: Normocephalic. EYES: No scleral icterus. No injection or drainage. NECK: Supple, trachea midline. No JVD or lymphadenopathy. CARDIOVASCULAR: Regular rate and rhythm without murmurs, gallops, or rubs. RESPIRATORY: Breath sounds equal bilaterally. No accessory muscle use. GASTROINTESTINAL: Abdomen soft, non-tender, nondistended. MUSCULOSKELETAL: No cyanosis, or edema. BACK: Nontender without obvious deformity. No CVA tenderness. A/P Assessment and Plan RLL Pneumonia HTN Left mandibular mass CAD,S/P CABG H/O ca Prostate PLAN: Cont Abx Check cultures Orofacial surgery consulted DW pt and his . Patrick Diallo MD Oct 26, 2016 19:29
--- NOTE | 2016-10-26 20:03 | RADRPT ---
EXAM DATE/TIME: 10/26/2016 17:59 [facility] COMPARISON: No previous studies available for comparison. INDICATIONS : Mass on left mandible. CONTRAST: 20 cc Omniscan (gadodiamide) IV MEDICAL HISTORY : Hypertension. Carcinoma, prostate. SURGICAL HISTORY : CABG Prostatectomy. Colectomy. Right knee surgery. ENCOUNTER: Subsequent ACUITY: 3 day PAIN SCORE: 0/10 LOCATION: jaw. TECHNIQUE: Multiplanar multisequence MRI examination of the mandible was performed. FINDINGS: MRI confirms a mildly expansile cystic lesion in the angle of the left mandible measuring up to 1.2 x 2.5 cm. Appearance is nonspecific. Lesion does not enhance significantly and is likely benign. There is some mild enhancement in the soft tissues around the right mandible probably representing a focal area of cellulitis.. CONCLUSION: 1. Oval-shaped cystic lesion in the left mandible with no significant enhancement. Appearance is like ly benign. 2. Mild enhancement in the soft tissues around the right mandible, probably mild cellulitis without d iscrete abscess. Collin Lancaster MD on October 26, 2016 at 19:53 Board Certified Radiologist. This report was verified electronically.
[2016-10-26] MEDS: LATANOPROST 0.005% OPHT SOLN 2.5 ML BTL EACH EYE SCH (21:00)
[2016-10-26] MEDS: ALPRAZolam 0.5 MG TAB PO SCH (21:14)
[2016-10-26] MEDS: ATORVASTATIN 20 MG TAB PO SCH (21:14)
[2016-10-26] MEDS: SODIUM CHLOR 0.45% 1000 ML INJ 1,000 ML IV SCH (21:17)
[2016-10-26] MEDS: cefTRIAXone INJ 1,000 MG in SODIUM CHLORIDE 0.9% INJ 100 ML IV SCH (21:17)
[2016-10-26] MEDS: AZITHROMYCIN INJ 500 MG in SODIUM CHLOR 0.9% 250 ML INJ 250 ML IV SCH (23:37)
[2016-10-27] VITALS (9 sets, daily range): BP systolic 113–144; BP diastolic 60–73; PULSE 82–106; RESP 17–20; TEMP 97.6–99.8; O2SAT 91–97
[2016-10-27] MEDS: SODIUM CHLOR 0.45% 1000 ML INJ 1,000 ML IV SCH (04:48)
[2016-10-27] MEDS: RESP: ALBUTEROL 2.5 MG/IPRATROPIUM 0.5 MG NEB (SCH) NEB ×3 (08:29→20:08)
--- NOTE | 2016-10-27 08:44 | HHI.PR ---
Subjective Remarks more cough/congestion. intermittent confusion poor appetite Objective Vitals heart reg lung course rhonci/wheeze abd s/nt ext no edema Vital Signs Date Time Temp Pulse Resp B/P (MAP) Pulse Ox O2 Delivery O2 Flow Rate FiO2 10/27/16 04:00 99.8 102 18 132/60 (84) 97 10/27/16 04:00 100 10/27/16 00:00 98 10/27/16 00:00 98.9 103 18 126/69 (88) 91 10/26/16 20:46 94 Nasal Cannula 3.00 10/26/16 20:00 100.2 118 18 134/87 (103) 97 10/26/16 20:00 131 10/26/16 16:01 99.3 110 20 104/60 (75) 93 10/26/16 12:35 100.7 97 18 107/58 (74) 95 10/26/16 11:59 95 Nasal Cannula 3.00 10/26/16 10:02 100.2 Result Diagram: 10/26/16 0651 10/26/16 1240 Imaging Last 24 hours Impressions Chest X-Ray 10/24/162101 Signed Impressions: Service Date/Time: Monday, October 24, 2016 21:11 - CONCLUSION: 1. Consolidative opacity in the right lower lobe most characteristic of pneumonia. 2. Heart immediately with no perihilar edema. Jakob Camejo MD A/P Problem List: (1) Right lower lobe pneumonia ICD Codes: J18.1 - Lobar pneumonia, unspecified organism Status: Acute Plan: Pt admitted for concern of left mandible mass on ct imaging looks expansile not destructive of bone. ..looks benign on mri 10/26 right lung pna. concern for bacteremia. pt described some hemoptysis. legionella ag positive. coumadin toxicity general weakness urine retention dehydration. pulmonary consulted. cont abx. change to levaquin duonebs. added mucomyst d/c ivf inc spirometer PT eval discussed with RN. pt need to get oob to chair for breathing exercises dvt prophylaxis f/u pending bmp, inr. OMFS consulted to eval mandible mass. (2) Atrial fibrillation, chronic ICD Codes: I48.2 - Chronic atrial fibrillation Status: Chronic Plan: cont current meds hold coumadin. (3) Generalized weakness ICD Codes: R53.1 - Weakness Status: Acute Plan: continue IV fluid (4) HTN (hypertension) ICD Codes: I10 - Essential (primary) hypertension Status: Chronic (5) H/O prostate cancer ICD Codes: Z85.46 - Personal history of malignant neoplasm of prostate Status: Resolved Theo Dumont MD Oct 27, 2016 08:44
[2016-10-27] MEDS: LEVOFLOXACIN 750 MG PREMIX INJ 150 ML IV SCH (09:20)
[2016-10-27] MEDS: DOCUSATE SODIUM 50 MG/SENNA 8.6 MG TAB PO SCH ×2 (09:20→21:26)
[2016-10-27] MEDS: MULTIVITAMINS/MINERALS THERAPEUTIC TAB PO SCH (09:21)
[2016-10-27] MEDS: METOPROLOL TARTRATE 25 MG TAB PO SCH ×2 (09:21→21:25)
[2016-10-27] MEDS: POTASSIUM CHLORIDE 20 MEQ CONTROLLED RELEASE TAB PO SCH ×2 (09:21→21:22)
[2016-10-27] MEDS: FUROSEMIDE 40 MG TAB PO SCH (09:21)
[2016-10-27] MEDS: SODIUM CHLORIDE 0.9% FLUSH 10 ML FLUSH IV FLUSH SCH ×2 (09:22→21:27)
[2016-10-27] MEDS: ASCORBIC ACID 500 MG TAB PO SCH (09:22)
[2016-10-27] MEDS: DORZOLAMIDE/TIMOLOL OPTH SOLN 10 ML BTL EACH EYE SCH ×2 (09:24→21:00)
[2016-10-27] MEDS ORDERED: RESP: ACETYLCYSTEINE 20% 30 ML NEB NEB SCH (12:00)
[2016-10-27] MEDS: RESP: ACETYLCYSTEINE 20% 30 ML NEB NEB SCH ×2 (12:28→20:08)
[2016-10-27 15:35] LABS: INTERNATIONAL NORMALIZED RATIO 3.3 RATIO; PROTHROMBIN TIME - PATIENT 38.4 SEC (9.8-11.6)
[2016-10-27 15:57] LABS: POTASSIUM 3.7 MEQ/L (3.5-5.1)
[2016-10-27 16:19] LABS: BICARBONATE 25.3 MEQ/L (21.0-32.0)
--- NOTE | 2016-10-27 17:39 | HHI.PR ---
Subjective Remarks 81 YOWM with RLL Pneumonia,Left Mandibular mass,HTN Feels better no fever no CP has cough Legionella Ag positive Objective Vital Signs Vital Signs Date Time Temp Pulse Resp B/P (MAP) Pulse Ox O2 Delivery O2 Flow Rate FiO2 10/27/16 11:50 97.6 92 20 113/68 (83) 94 10/27/16 08:30 96 Nasal Cannula 3.00 10/27/16 07:30 99.3 106 20 144/73 (96) 93 10/27/16 04:00 99.8 102 18 132/60 (84) 97 10/27/16 04:00 100 10/27/16 00:00 98 10/27/16 00:00 98.9 103 18 126/69 (88) 91 10/26/16 20:46 94 Nasal Cannula 3.00 10/26/16 20:00 100.2 118 18 134/87 (103) 97 10/26/16 20:00 131 I/O 10/26/16 10/26/16 10/26/16 10/27/16 10/27/16 10/27/16 07:00 15:00 23:00 07:00 15:00 23:00 Intake Total 360 ml 600 ml Output Total 200 ml Balance -200 ml 360 ml 600 ml Intake Oral 360 ml IV Total 600 ml Output Urine Total 200 ml Bladder Scan Volume Amount 450 ml # Voids 1 2 1 # Bowel Movements 2 Result Diagram: 10/26/16 0651 10/27/16 1457 Objective Remarks GENERAL: WBWn WM, NAD SKIN: Warm and dry. HEAD: Normocephalic. EYES: No scleral icterus. No injection or drainage. NECK: Supple, trachea midline. No JVD or lymphadenopathy. CARDIOVASCULAR: Regular rate and rhythm without murmurs, gallops, or rubs. RESPIRATORY: Breath sounds equal bilaterally. No accessory muscle use. GASTROINTESTINAL: Abdomen soft, non-tender, nondistended. MUSCULOSKELETAL: No cyanosis, or edema. BACK: Nontender without obvious deformity. No CVA tenderness. A/P Assessment and Plan RLL Legionella Pneumonia HTN Left mandibular mass CAD,S/P CABG H/O ca Prostate PLAN: Cont Abx Check cultures Orofacial surgery consulted Tesaalon 200 mg q 8 hrs prn DW pt and his . Patrick Diallo MD Oct 27, 2016 17:39
[2016-10-27] MEDS ORDERED: BENZONATATE 100 MG CAP PO PRN (17:45)
[2016-10-27] MEDS: LATANOPROST 0.005% OPHT SOLN 2.5 ML BTL EACH EYE SCH (21:00)
[2016-10-27] MEDS: ALPRAZolam 0.5 MG TAB PO SCH (21:22)
[2016-10-27] MEDS: ATORVASTATIN 20 MG TAB PO SCH (21:25)
[2016-10-27] MEDS: AZITHROMYCIN INJ 500 MG in SODIUM CHLOR 0.9% 250 ML INJ 250 ML IV SCH (21:27)
[2016-10-28] VITALS (11 sets, daily range): BP systolic 108–130; BP diastolic 57–79; PULSE 74–95; RESP 17–20; TEMP 96.1–98.8; O2SAT 96–98
[2016-10-28] MEDS: RESP: ALBUTEROL 2.5 MG/IPRATROPIUM 0.5 MG NEB (SCH) NEB ×3 (07:44→20:21)
[2016-10-28] MEDS: RESP: ACETYLCYSTEINE 20% 30 ML NEB NEB SCH ×3 (07:44→20:20)
[2016-10-28] MEDS: DOCUSATE SODIUM 50 MG/SENNA 8.6 MG TAB PO SCH ×2 (08:21→22:00)
[2016-10-28] MEDS: LEVOFLOXACIN 750 MG PREMIX INJ 150 ML IV SCH (08:22)
[2016-10-28] MEDS: METOPROLOL TARTRATE 25 MG TAB PO SCH ×2 (08:22→22:00)
[2016-10-28] MEDS: FUROSEMIDE 40 MG TAB PO SCH (08:22)
[2016-10-28] MEDS: MULTIVITAMINS/MINERALS THERAPEUTIC TAB PO SCH (08:22)
[2016-10-28] MEDS: POTASSIUM CHLORIDE 20 MEQ CONTROLLED RELEASE TAB PO SCH ×2 (08:22→22:01)
[2016-10-28] MEDS: SODIUM CHLORIDE 0.9% FLUSH 10 ML FLUSH IV FLUSH SCH ×3 (08:23→22:01)
[2016-10-28] MEDS: ASCORBIC ACID 500 MG TAB PO SCH (08:27)
[2016-10-28] MEDS: DORZOLAMIDE/TIMOLOL OPTH SOLN 10 ML BTL EACH EYE SCH ×2 (08:35→21:00)
--- NOTE | 2016-10-28 09:14 | HHI.PR ---
Subjective Remarks concerned with intermittent confusion and weakness. still cough/congestion. Objective Vitals oriented heart reg lung course rhonci/wheeze abd s/nt ext no edema Vital Signs Date Time Temp Pulse Resp B/P (MAP) Pulse Ox O2 Delivery O2 Flow Rate FiO2 10/28/16 04:00 95 10/28/16 04:00 98.8 82 17 108/69 (82) 96 10/28/16 00:00 97.7 74 18 112/66 (81) 96 10/28/16 00:00 80 10/27/16 20:05 94 Nasal Cannula 3.00 10/27/16 20:00 98.7 91 17 119/67 (84) 97 10/27/16 20:00 82 10/27/16 16:00 92 10/27/16 15:50 98.0 88 20 130/68 (88) 92 10/27/16 11:50 97.6 92 20 113/68 (83) 94 Result Diagram: 10/26/16 0651 10/27/16 1457 Imaging Last 24 hours Impressions Chest X-Ray 10/24/162 Signed Impressions: Service Date/Time: Monday, October 24, 2016 21:11 - CONCLUSION: 1. Consolidative opacity in the right lower lobe most characteristic of pneumonia. 2. Heart immediately with no perihilar edema. Jakob Camejo MD A/P Problem List: (1) Right lower lobe pneumonia ICD Codes: J18.1 - Lobar pneumonia, unspecified organism Status: Acute Plan: Pt admitted for concern of left mandible mass on ct imaging looks expansile not destructive of bone. ..looks benign on mri 10/26 right lung pna. concern for bacteremia. pt described some hemoptysis. legionella ag positive. coumadin toxicity..sp vit k 5mg general weakness urine retention dehydration. pulmonary consulted. cont abx. duonebs. added mucomyst inc spirometer PT eval. discussed with RN. pt need to get oob to chair for breathing exercises dvt prophylaxis f/u pending bmp, inr. OMFS consulted to eval mandible mass. discussed with SUPERVISOR SANDING...no OMFS available and MRI looks benign. pt will be referred outpt. (2) Atrial fibrillation, chronic ICD Codes: I48.2 - Chronic atrial fibrillation Status: Chronic Plan: cont current meds hold coumadin. (3) Generalized weakness ICD Codes: R53.1 - Weakness Status: Acute Plan: continue IV fluid (4) HTN (hypertension) ICD Codes: I10 - Essential (primary) hypertension Status: Chronic (5) H/O prostate cancer ICD Codes: Z85.46 - Personal history of malignant neoplasm of prostate Status: Resolved Theo Dumont MD Oct 28, 2016 09:14
[2016-10-28 09:37] LABS: INTERNATIONAL NORMALIZED RATIO 3.2 RATIO; PROTHROMBIN TIME - PATIENT 36.8 SEC (9.8-11.6)
[2016-10-28 09:52] LABS: BICARBONATE 25.6 MEQ/L (21.0-32.0); POTASSIUM 3.6 MEQ/L (3.5-5.1)
--- NOTE | 2016-10-28 11:34 | RADRPT ---
EXAM DATE/TIME: 10/28/2016 09:31 [facility] COMPARISON: CHEST SINGLE AP, October 06, 2015, 18:17. INDICATIONS : Difficulty breathing. Evaluate for pneumonia. MEDICAL HISTORY : Cardiovascular disease. Hypertension. Carcinoma, prostate. SURGICAL HISTORY : CABG. ENCOUNTER: Subsequent ACUITY: 3 days PAIN SCORE: 2/10 LOCATION: Bilateral chest FINDINGS: Median sternotomy wires are noted status post cardiac surgery. The heart is enlarged. Bibasilar pat chiness is noted consistent with atelectasis and/or infiltrates. Degenerative changes and scoliosis of the thoracic spine are noted. CONCLUSION: 1. Bibasilar patchiness consistent with atelectasis and/or infiltrates. 2. Degenerative changes and scoliosis of the thoracic spine. 3. Cardiomegaly. Cornelius Rodrigues MD on October 28, 2016 at 11:29 Board Certified Radiologist. This report was verified electronically.
--- NOTE | 2016-10-28 16:38 | HHI.PR ---
Subjective Remarks 81 YOWM with RLL Pneumonia,Left Mandibular mass,HTN no fever no CP has cough Legionella Ag positive Objective Vital Signs Vital Signs Date Time Temp Pulse Resp B/P (MAP) Pulse Ox O2 Delivery O2 Flow Rate FiO2 10/28/16 11:30 96.5 85 20 130/79 (96) 96 10/28/16 09:25 97 Nasal Cannula 3.00 10/28/16 07:30 96.6 77 20 130/73 (92) 97 10/28/16 04:00 95 10/28/16 04:00 98.8 82 17 108/69 (82) 96 10/28/16 00:00 97.7 74 18 112/66 (81) 96 10/28/16 00:00 80 10/27/16 20:05 94 Nasal Cannula 3.00 10/27/16 20:00 98.7 91 17 119/67 (84) 97 10/27/16 20:00 82 I/O 10/27/16 10/27/16 10/27/16 10/28/16 10/28/16 10/28/16 06:59 14:59 22:59 06:59 14:59 22:59 Intake Total 720 ml Output Total 500 ml Balance 720 ml -500 ml Intake Oral 720 ml Output Urine Total 500 ml # Voids 1 4 1 # Bowel Movements 0 Result Diagram: 10/26/16 0651 10/28/16 0829 Objective Remarks GENERAL: WBWn WM, NAD SKIN: Warm and dry. HEAD: Normocephalic. EYES: No scleral icterus. No injection or drainage. NECK: Supple, trachea midline. No JVD or lymphadenopathy. CARDIOVASCULAR: Regular rate and rhythm without murmurs, gallops, or rubs. RESPIRATORY: Breath sounds equal bilaterally. No accessory muscle use. GASTROINTESTINAL: Abdomen soft, non-tender, nondistended. MUSCULOSKELETAL: No cyanosis, or edema. BACK: Nontender without obvious deformity. No CVA tenderness. A/P Assessment and Plan RLL Legionella Pneumonia HTN Left mandibular mass CAD,S/P CABG H/O ca Prostate PLAN: Cont Abx OOB and ambulate Tesaalon 200 mg q 8 hrs prn DW pt and his . Patrick Goldsmith MD Oct 28, 2016 16:38
[2016-10-28] MEDS: AZITHROMYCIN INJ 500 MG in SODIUM CHLOR 0.9% 250 ML INJ 250 ML IV SCH (21:58)
[2016-10-28] MEDS: ATORVASTATIN 20 MG TAB PO SCH (21:59)
[2016-10-28] MEDS: ALPRAZolam 0.5 MG TAB PO SCH (22:01)
[2016-10-28] MEDS: LATANOPROST 0.005% OPHT SOLN 2.5 ML BTL EACH EYE SCH (22:02)
[2016-10-29] VITALS (10 sets, daily range): BP systolic 99–137; BP diastolic 65–79; PULSE 66–86; RESP 18–20; TEMP 96.2–97.7; O2SAT 95–99
[2016-10-29] MEDS: RESP: ALBUTEROL 2.5 MG/IPRATROPIUM 0.5 MG NEB (SCH) NEB ×3 (08:00→20:00)
[2016-10-29] MEDS: RESP: ACETYLCYSTEINE 20% 30 ML NEB NEB SCH ×3 (08:00→20:00)
--- NOTE | 2016-10-29 09:12 | HHI.PR ---
Subjective Remarks seems more alert still with cough. was oob to chair yesterday Objective Vitals heart reg lung wheezing/rhonci abd s/nt ext no edema Vital Signs Date Time Temp Pulse Resp B/P (MAP) Pulse Ox O2 Delivery O2 Flow Rate FiO2 10/29/16 08:02 95 Nasal Cannula 3.00 10/29/16 08:00 97.7 83 18 137/76 (96) 99 10/29/16 04:00 96.2 73 20 118/71 (87) 98 10/29/16 00:00 96.6 82 20 131/65 (87) 97 10/28/16 22:45 Nasal Cannula 3.00 10/28/16 21:22 96.1 80 20 110/69 (83) 98 10/28/16 20:22 98 Nasal Cannula 3.00 10/28/16 16:00 86 10/28/16 15:50 96.8 82 20 116/57 (76) 97 10/28/16 12:00 91 10/28/16 11:30 96.5 85 20 130/79 (96) 96 10/28/16 09:25 97 Nasal Cannula 3.00 Result Diagram: 10/26/16 0651 10/28/16 0829 Imaging Last 24 hours Impressions Chest X-Ray 10/24/162101 Signed Impressions: Service Date/Time: Monday, October 24, 2016 21:11 - CONCLUSION: 1. Consolidative opacity in the right lower lobe most characteristic of pneumonia. 2. Heart immediately with no perihilar edema. Jakob Camejo MD A/P Problem List: (1) Right lower lobe pneumonia ICD Codes: J18.1 - Lobar pneumonia, unspecified organism Status: Acute Plan: Pt admitted for concern of left mandible mass on ct imaging looks expansile not destructive of bone. ..looks benign on mri 10/26 right lung pna. concern for bacteremia. pt described some hemoptysis. legionella ag positive. coumadin toxicity..sp vit k 5mg general weakness urine retention dehydration. pulmonary consulted. cont abx. duonebs. added mucomyst inc spirometer PT eval. cont oob daily with assist. dvt prophylaxis f/u pending bmp, inr. OMFS consulted to eval mandible mass. discussed with PRIMARY CLASS TEACHER...no OMFS available and MRI looks benign. pt will be referred outpt. (2) Atrial fibrillation, chronic ICD Codes: I48.2 - Chronic atrial fibrillation Status: Chronic Plan: cont current meds hold coumadin. (3) Generalized weakness ICD Codes: R53.1 - Weakness Status: Acute Plan: continue IV fluid (4) HTN (hypertension) ICD Codes: I10 - Essential (primary) hypertension Status: Chronic (5) H/O prostate cancer ICD Codes: Z85.46 - Personal history of malignant neoplasm of prostate Status: Resolved Theo Dumont MD Oct 29, 2016 09:12
[2016-10-29] MEDS ORDERED: guaiFENesin/CODEINE SYRUP 200 MG/20 MG/10 ML CUP PO PRN (09:15)
[2016-10-29] MEDS: LEVOFLOXACIN 750 MG PREMIX INJ 150 ML IV SCH (09:24)
[2016-10-29] MEDS: POTASSIUM CHLORIDE 20 MEQ CONTROLLED RELEASE TAB PO SCH ×2 (09:25→20:36)
[2016-10-29] MEDS: MULTIVITAMINS/MINERALS THERAPEUTIC TAB PO SCH (09:25)
[2016-10-29] MEDS: DOCUSATE SODIUM 50 MG/SENNA 8.6 MG TAB PO SCH ×2 (09:25→20:36)
[2016-10-29] MEDS: ASCORBIC ACID 500 MG TAB PO SCH (09:25)
[2016-10-29] MEDS: FUROSEMIDE 40 MG TAB PO SCH (09:25)
[2016-10-29] MEDS: METOPROLOL TARTRATE 25 MG TAB PO SCH ×2 (09:26→20:36)
[2016-10-29] MEDS: SODIUM CHLORIDE 0.9% FLUSH 10 ML FLUSH IV FLUSH SCH (09:27)
[2016-10-29] MEDS ORDERED: guaiFENesin/CODEINE SYRUP 200 MG/20 MG/10 ML CUP PO ONE (09:30)
[2016-10-29] MEDS: DORZOLAMIDE/TIMOLOL OPTH SOLN 10 ML BTL EACH EYE SCH ×2 (09:38→22:02)
--- NOTE | 2016-10-29 10:32 | HHI.PR ---
Subjective Remarks 81 YOWM with RLL Pneumonia,Left Mandibular mass,HTN no fever no CP has cough Legionella Ag positive Feels better Objective Vital Signs Vital Signs Date Time Temp Pulse Resp B/P (MAP) Pulse Ox O2 Delivery O2 Flow Rate FiO2 10/29/16 09:30 80 122/73 (89) 10/29/16 08:02 95 Nasal Cannula 3.00 10/29/16 08:00 97.7 83 18 137/76 (96) 99 10/29/16 04:00 96.2 73 20 118/71 (87) 98 10/29/16 00:00 96.6 82 20 131/65 (87) 97 10/28/16 22:45 Nasal Cannula 3.00 10/28/16 21:22 96.1 80 20 110/69 (83) 98 10/28/16 20:22 98 Nasal Cannula 3.00 10/28/16 16:00 86 10/28/16 15:50 96.8 82 20 116/57 (76) 97 10/28/16 12:00 91 10/28/16 11:30 96.5 85 20 130/79 (96) 96 I/O 10/28/16 10/28/16 10/28/16 10/29/16 10/29/16 10/29/16 06:59 14:59 22:59 06:59 14:59 22:59 Intake Total 480 ml Output Total 500 ml 900 ml 400 ml Balance -500 ml 480 ml -900 ml -400 ml Intake Oral 480 ml Output Urine Total 500 ml 900 ml 400 ml # Voids 1 2 # Bowel Movements 0 0 Result Diagram: 10/26/16 0651 10/28/16 0829 Objective Remarks GENERAL: WBWn WM, NAD SKIN: Warm and dry. HEAD: Normocephalic. EYES: No scleral icterus. No injection or drainage. NECK: Supple, trachea midline. No JVD or lymphadenopathy. CARDIOVASCULAR: Regular rate and rhythm without murmurs, gallops, or rubs. RESPIRATORY: Breath sounds equal bilaterally. No accessory muscle use. GASTROINTESTINAL: Abdomen soft, non-tender, nondistended. MUSCULOSKELETAL: No cyanosis, or edema. BACK: Nontender without obvious deformity. No CVA tenderness. A/P Assessment and Plan RLL Legionella Pneumonia HTN Left mandibular mass CAD,S/P CABG H/O ca Prostate PLAN: Cont Abx OOB and ambulate Tesaalon 200 mg q 8 hrs prn DW pt and his . Stable from pulm standpoint Will not round but Pulm coverage available prn. Patrick Diallo MD Oct 29, 2016 10:32
[2016-10-29 13:00] LABS: INTERNATIONAL NORMALIZED RATIO 4.4 RATIO; PROTHROMBIN TIME - PATIENT 51.9 SEC (9.8-11.6)
[2016-10-29] MEDS: LATANOPROST 0.005% OPHT SOLN 2.5 ML BTL EACH EYE SCH (20:36)
[2016-10-29] MEDS: ATORVASTATIN 20 MG TAB PO SCH (20:36)
[2016-10-29] MEDS: ALPRAZolam 0.5 MG TAB PO SCH (20:36)
[2016-10-30] VITALS (9 sets, daily range): BP systolic 113–130; BP diastolic 67–75; PULSE 77–123; RESP 16–20; TEMP 97.1–99.1; O2SAT 94–97
[2016-10-30] MEDS: RESP: ACETYLCYSTEINE 20% 30 ML NEB NEB SCH ×3 (08:00→20:03)
[2016-10-30] MEDS: FUROSEMIDE 40 MG TAB PO SCH (08:32)
[2016-10-30] MEDS: DOCUSATE SODIUM 50 MG/SENNA 8.6 MG TAB PO SCH ×2 (08:32→23:31)
[2016-10-30] MEDS: MULTIVITAMINS/MINERALS THERAPEUTIC TAB PO SCH (08:32)
[2016-10-30] MEDS: POTASSIUM CHLORIDE 20 MEQ CONTROLLED RELEASE TAB PO SCH ×2 (08:32→23:20)
[2016-10-30] MEDS: DORZOLAMIDE/TIMOLOL OPTH SOLN 10 ML BTL EACH EYE SCH ×2 (08:33→21:00)
[2016-10-30] MEDS: ASCORBIC ACID 500 MG TAB PO SCH (08:33)
[2016-10-30] MEDS: LEVOFLOXACIN 750 MG PREMIX INJ 150 ML IV SCH (08:33)
[2016-10-30] MEDS: SODIUM CHLORIDE 0.9% FLUSH 10 ML FLUSH IV FLUSH SCH ×2 (08:33→23:36)
[2016-10-30] MEDS: METOPROLOL TARTRATE 25 MG TAB PO SCH ×2 (08:33→23:20)
--- NOTE | 2016-10-30 08:55 | HHI.PR ---
Subjective Remarks still wheezing generally weak. Objective Vitals heart rg lung wheezing abd s/nt ext no edema tired/weak appearing. Vital Signs Date Time Temp Pulse Resp B/P (MAP) Pulse Ox O2 Delivery O2 Flow Rate FiO2 10/30/16 08:00 99.1 110 20 113/75 (88) 94 10/30/16 05:23 97.2 79 19 126/73 (90) 97 10/30/16 00:58 97.4 77 18 126/73 (90) 96 10/29/16 21:14 96.7 86 18 136/67 (90) 96 10/29/16 20:16 74 10/29/16 16:00 97.1 85 20 123/78 (93) 96 10/29/16 15:43 98 Nasal Cannula 2.00 10/29/16 12:00 97.3 72 20 99/79 (86) 97 10/29/16 12:00 66 10/29/16 09:30 80 122/73 (89) Result Diagram: 10/26/16 0651 10/28/16 0829 Imaging Last 24 hours Impressions Chest X-Ray 10/24/162101 Signed Impressions: Service Date/Time: Monday, October 24, 2016 21:11 - CONCLUSION: 1. Consolidative opacity in the right lower lobe most characteristic of pneumonia. 2. Heart immediately with no perihilar edema. Jakob Camejo MD A/P Problem List: (1) Right lower lobe pneumonia ICD Codes: J18.1 - Lobar pneumonia, unspecified organism Status: Acute Plan: Pt admitted for concern of left mandible mass on ct imaging looks expansile not destructive of bone. ..looks benign on mri 10/26 right lung pna. concern for bacteremia. pt described some hemoptysis. legionella ag positive. coumadin toxicity..sp vit k 5mg general weakness urine retention dehydration. pulmonary consulted. cont abx. duonebs. added mucomyst 24hr iv solumedrol inc spirometer PT eval. cont oob daily with assist. dvt prophylaxis f/u pending bmp, inr. OMFS consulted to eval mandible mass. discussed with WOOD INSPECTOR...no OMFS available and MRI looks benign. pt will be referred outpt. (2) Atrial fibrillation, chronic ICD Codes: I48.2 - Chronic atrial fibrillation Status: Chronic Plan: cont current meds hold coumadin. (3) Generalized weakness ICD Codes: R53.1 - Weakness Status: Acute Plan: continue IV fluid (4) HTN (hypertension) ICD Codes: I10 - Essential (primary) hypertension Status: Chronic (5) H/O prostate cancer ICD Codes: Z85.46 - Personal history of malignant neoplasm of prostate Status: Resolved Theo Dumont MD Oct 30, 2016 08:55
[2016-10-30] MEDS: RESP: ALBUTEROL 2.5 MG/IPRATROPIUM 0.5 MG NEB (SCH) NEB ×2 (09:53→13:21)
[2016-10-30] MEDS ORDERED: methylPREDNISolone SOD SUCC 125 MG/2 ML VIAL IV PUSH ONE (10:00)
[2016-10-30 12:31] LABS: INTERNATIONAL NORMALIZED RATIO 4.4 RATIO; PROTHROMBIN TIME - PATIENT 51.5 SEC (9.8-11.6)
[2016-10-30 12:53] LABS: BICARBONATE 29.9 MEQ/L (21.0-32.0); POTASSIUM 3.7 MEQ/L (3.5-5.1)
[2016-10-30] MEDS: methylPREDNISolone SOD SUCC 125 MG/2 ML VIAL IV PUSH SCH ×2 (16:16→23:21)
[2016-10-30] MEDS: RESP: ALBUTEROL 2.5 MG/IPRATROPIUM 0.5 MG NEB (PRN) NEB (20:02)
[2016-10-30] MEDS: LATANOPROST 0.005% OPHT SOLN 2.5 ML BTL EACH EYE SCH (21:00)
[2016-10-30] MEDS: ALPRAZolam 0.5 MG TAB PO SCH (23:20)
[2016-10-30] MEDS: ATORVASTATIN 20 MG TAB PO SCH (23:20)
[2016-10-31] VITALS (11 sets, daily range): BP systolic 117–162; BP diastolic 57–92; PULSE 48–89; RESP 16–23; TEMP 96–97.5; O2SAT 94–99
[2016-10-31] MEDS: methylPREDNISolone SOD SUCC 125 MG/2 ML VIAL IV PUSH SCH (05:26)
[2016-10-31] MEDS: FUROSEMIDE 40 MG TAB PO SCH (08:45)
[2016-10-31] MEDS: ASCORBIC ACID 500 MG TAB PO SCH (08:45)
[2016-10-31] MEDS: MULTIVITAMINS/MINERALS THERAPEUTIC TAB PO SCH (08:45)
[2016-10-31] MEDS: SODIUM CHLORIDE 0.9% FLUSH 10 ML FLUSH IV FLUSH SCH ×2 (08:46→20:55)
[2016-10-31] MEDS: DORZOLAMIDE/TIMOLOL OPTH SOLN 10 ML BTL EACH EYE SCH ×2 (08:46→20:54)
[2016-10-31] MEDS: METOPROLOL TARTRATE 25 MG TAB PO SCH ×2 (08:46→20:55)
[2016-10-31] MEDS: POTASSIUM CHLORIDE 20 MEQ CONTROLLED RELEASE TAB PO SCH ×2 (08:46→20:55)
[2016-10-31] MEDS: LEVOFLOXACIN 750 MG PREMIX INJ 150 ML IV SCH (08:46)
[2016-10-31] MEDS: DOCUSATE SODIUM 50 MG/SENNA 8.6 MG TAB PO SCH ×2 (08:46→20:57)
[2016-10-31] MEDS: RESP: ACETYLCYSTEINE 20% 30 ML NEB NEB SCH ×2 (08:51→13:31)
--- NOTE | 2016-10-31 09:01 | HHI.PR ---
Subjective Remarks breathing seems better he is on bedside commode was oob yesterday to chair. Objective Vitals heart irreg lung improved air entry abd s/nt ext no edema Vital Signs Date Time Temp Pulse Resp B/P (MAP) Pulse Ox O2 Delivery O2 Flow Rate FiO2 10/31/16 06:00 63 10/31/16 04:00 96.4 77 16 130/80 (97) 96 10/31/16 03:50 48 10/31/16 00:00 96.5 79 18 132/88 (103) 95 10/31/16 00:00 60 10/30/16 20:03 95 Nasal Cannula 2.00 10/30/16 20:00 88 10/30/16 20:00 97.1 77 16 130/74 (92) 97 10/30/16 16:00 97.7 82 18 128/73 (91) 95 10/30/16 12:00 99.1 92 18 119/67 (84) 96 10/30/16 11:22 123 10/30/16 09:58 94 Nasal Cannula 2.00 Result Diagram: 10/30/16 1125 Imaging Last 24 hours Impressions Chest X-Ray 10/24/162 Signed Impressions: Service Date/Time: Monday, October 24, 2016 21:11 - CONCLUSION: 1. Consolidative opacity in the right lower lobe most characteristic of pneumonia. 2. Heart immediately with no perihilar edema. Jakob Camejo MD A/P Problem List: (1) Right lower lobe pneumonia ICD Codes: J18.1 - Lobar pneumonia, unspecified organism Status: Acute Plan: Pt admitted for concern of left mandible mass on ct imaging looks expansile not destructive of bone. ..looks benign on mri 10/26 right lung pna. concern for bacteremia. pt described some hemoptysis. legionella ag positive. coumadin toxicity..sp vit k 5mg general weakness urine retention dehydration. pulmonary consulted. cont abx. duonebs. added mucomyst s/p 24hr iv solumedrol with improvement in wheezing. inc spirometer PT eval. cont oob daily with assist. dvt prophylaxis f/u inr. resume coumadin whn inr less than 3 OMFS consulted to eval mandible mass. discussed with TRAINING PROJECT MANAGER...no OMFS available and MRI looks benign. pt will be referred outpt. (2) Atrial fibrillation, chronic ICD Codes: I48.2 - Chronic atrial fibrillation Status: Chronic Plan: cont current meds hold coumadin. (3) Generalized weakness ICD Codes: R53.1 - Weakness Status: Acute Plan: continue IV fluid (4) HTN (hypertension) ICD Codes: I10 - Essential (primary) hypertension Status: Chronic (5) H/O prostate cancer ICD Codes: Z85.46 - Personal history of malignant neoplasm of prostate Status: Resolved Theo Dumont MD Oct 31, 2016 09:01
[2016-10-31 11:42] LABS: INTERNATIONAL NORMALIZED RATIO 3.8 RATIO; PROTHROMBIN TIME - PATIENT 44.2 SEC (9.8-11.6)
[2016-10-31] MEDS ORDERED: WARFARIN SOD 7.5 MG TAB PO SCH (16:00)
--- NOTE | 2016-10-31 17:53 | EKG ---
Date Performed: 10/31/2016 Time Performed: 05:09:22 PTAGE: 81 years EKG: Atrial fibrillation with slow ventricular response --- Suspect arm lead reversal - only aVF , V1-V6 analyzed --- Extensive T wave changes are nonspecific Abnormal ECG PREVIOUS TRACING : 10/24/2016 20.47 Compared to the previous tracing there is limb lead reversa l and ventricular rate is slower DOCTOR: Johny Mason Interpretating Date/Time 10/31/2016 17:52:26
[2016-10-31] MEDS: LATANOPROST 0.005% OPHT SOLN 2.5 ML BTL EACH EYE SCH (20:54)
[2016-10-31] MEDS: ALPRAZolam 0.5 MG TAB PO SCH (20:55)
[2016-10-31] MEDS: ATORVASTATIN 20 MG TAB PO SCH (20:55)
[2016-11-01] VITALS (8 sets, daily range): BP systolic 134–164; BP diastolic 68–81; PULSE 59–92; RESP 14–18; TEMP 96.5–97.9; O2SAT 94–97
--- NOTE | 2016-11-01 08:32 | HHI.PR ---
Subjective Remarks No new complaints Objective Vitals Vital Signs Date Time Temp Pulse Resp B/P (MAP) Pulse Ox O2 Delivery O2 Flow Rate FiO2 11/01/16 08:01 70 11/01/16 07:30 96.5 59 16 157/81 (106) 94 11/01/16 00:20 96.7 71 18 134/68 (90) 97 10/31/16 20:20 97.5 69 19 139/74 (95) 98 10/31/16 20:07 73 10/31/16 16:23 96.3 89 21 117/57 (77) 95 10/31/16 13:35 99 Nasal Cannula 2.00 10/31/16 12:53 96.5 57 23 125/60 (81) 96 10/31/16 09:10 98 Nasal Cannula 2.00 Result Diagram: 10/30/16 1125 Imaging Last Impressions Chest X-Ray 10/28/16 0000 Signed Impressions: Service Date/Time: October 09:31 - CONCLUSION: 1. Bibasilar patchiness consistent with atelectasis and/or infiltrates. 2. Degenerative changes and scoliosis of the thoracic spine. 3. Cardiomegaly. Cornelius Rodrigues MD Mandible X-Ray 10/26/16 0000 Signed Impressions: Service Date/Time: Wednesday, October 26, 2016 17:59 - CONCLUSION: 1. Oval-shaped cystic lesion in the left mandible with no significant enhancement. Appearance is likely benign. 2. Mild enhancement in the soft tissues around the right mandible, probably mild cellulitis without discrete abscess. Collin Lancaster MD Neck CT 10/25/16 0000 Signed Impressions: Service Date/Time: Tuesday, October 25, 2016 13:25 - CONCLUSION: I cannot confirm an abscess. Abnormal mass expanding bone left mandible as described above. Terry Uribe MD FACR Objective Remarks GENERAL: This is a well-nourished, well-developed patient, in no apparent distress. CARDIOVASCULAR: Regular rate and rhythm without murmurs, gallops, or rubs. RESPIRATORY: Clear to auscultation. Breath sounds equal bilaterally. No wheezes , rales, or rhonchi. GASTROINTESTINAL: Abdomen soft, non-tender, nondistended. Normal active bowel sounds MUSCULOSKELETAL: Extremities without clubbing, cyanosis, or edema. NEURO: Alert & Oriented x4 to person, place, time, situation. Moves all ext x4 A/P Problem List: (1) Mandibular mass ICD Codes: R22.0 - Localized swelling, mass and lump, head Plan: - Pt admitted for concern of left mandible mass on ct imaging looks expansile not destructive of bone. - mri 10/26 --> mandibular mass appears begnin - pt will f/u with maxofacial surgery outpt (2) Right lower lobe pneumonia ICD Codes: J18.1 - Lobar pneumonia, unspecified organism Status: Acute Plan: - Pt described hemoptysis upon admission right lung pna. concern for bacteremia. pt described some hemoptysis. legionella ag positive. coumadin toxicity..sp vit k 5mg general weakness urine retention dehydration. f/u inr. resume coumadin whn inr less than 3 - positive for legionella - comgmt with Pulm Medicine - case informally d/w ID. Will need to continue treatment with levaquin for 21 days total. - duonebs - levaquin - IS - PT - DVT prophylaxis - PT - anticipate d/c to SNF 11/02 (3) Coumadin toxicity ICD Codes: T45.511A - Poisoning by anticoagulants, accidental (unintentional), initial encounter Plan: - INR 4.4 (10/30), 3.4 (10/31) - INR pending - coumadin on hold (4) Atrial fibrillation, chronic ICD Codes: I48.2 - Chronic atrial fibrillation Status: Chronic Plan: - stable - metoprolol - coumadin on hold, see above (5) Generalized weakness ICD Codes: R53.1 - Weakness Status: Acute Plan: continue IV fluid (6) HTN (hypertension) ICD Codes: I10 - Essential (primary) hypertension Status: Chronic (7) H/O prostate cancer ICD Codes: Z85.46 - Personal history of malignant neoplasm of prostate Status: Resolved Alireza Bonilla DO Nov 01, 2016 08:32
[2016-11-01] MEDS: ASCORBIC ACID 500 MG TAB PO SCH (08:53)
[2016-11-01] MEDS: MULTIVITAMINS/MINERALS THERAPEUTIC TAB PO SCH (08:54)
[2016-11-01] MEDS: DORZOLAMIDE/TIMOLOL OPTH SOLN 10 ML BTL EACH EYE SCH ×2 (08:54→21:00)
[2016-11-01] MEDS: METOPROLOL TARTRATE 25 MG TAB PO SCH ×2 (08:54→22:19)
[2016-11-01] MEDS: POTASSIUM CHLORIDE 20 MEQ CONTROLLED RELEASE TAB PO SCH ×2 (08:54→22:11)
[2016-11-01] MEDS: FUROSEMIDE 40 MG TAB PO SCH (08:54)
[2016-11-01] MEDS: SODIUM CHLORIDE 0.9% FLUSH 10 ML FLUSH IV FLUSH SCH ×2 (08:55→22:10)
[2016-11-01] MEDS: DOCUSATE SODIUM 50 MG/SENNA 8.6 MG TAB PO SCH ×2 (08:55→21:00)
[2016-11-01] MEDS: LEVOFLOXACIN 750 MG PREMIX INJ 150 ML IV SCH (08:55)
[2016-11-01 09:46] LABS: INTERNATIONAL NORMALIZED RATIO 3.4 RATIO; PROTHROMBIN TIME - PATIENT 39.7 SEC (9.8-11.6)
[2016-11-01] MEDS: LATANOPROST 0.005% OPHT SOLN 2.5 ML BTL EACH EYE SCH (21:00)
[2016-11-01] MEDS: ATORVASTATIN 20 MG TAB PO SCH (22:11)
[2016-11-01] MEDS: ALPRAZolam 0.5 MG TAB PO SCH (22:11)
[2016-11-02] VITALS: BP 118/67; PULSE 56; RESP 18; TEMP 97.4; O2SAT 96
[2016-11-02 08:00] VITALS: BP 164/66; PULSE 73; RESP 16; TEMP 96.3; O2SAT 93
[2016-11-02] MEDS: DOCUSATE SODIUM 50 MG/SENNA 8.6 MG TAB PO SCH (09:12)
[2016-11-02] MEDS: METOPROLOL TARTRATE 25 MG TAB PO SCH (09:12)
[2016-11-02] MEDS: FUROSEMIDE 40 MG TAB PO SCH (09:12)
[2016-11-02] MEDS: MULTIVITAMINS/MINERALS THERAPEUTIC TAB PO SCH (09:13)
[2016-11-02] MEDS: ASCORBIC ACID 500 MG TAB PO SCH (09:13)
[2016-11-02] MEDS: LEVOFLOXACIN 750 MG PREMIX INJ 150 ML IV SCH (09:13)
[2016-11-02] MEDS: SODIUM CHLORIDE 0.9% FLUSH 10 ML FLUSH IV FLUSH SCH (09:13)
[2016-11-02] MEDS: POTASSIUM CHLORIDE 20 MEQ CONTROLLED RELEASE TAB PO SCH (09:13)
[2016-11-02] MEDS: DORZOLAMIDE/TIMOLOL OPTH SOLN 10 ML BTL EACH EYE SCH (09:15)
--- NOTE | 2016-11-02 09:15 | HHI.PR ---
Subjective Remarks No new complaints. Objective Vitals Vital Signs Date Time Temp Pulse Resp B/P (MAP) Pulse Ox O2 Delivery O2 Flow Rate FiO2 11/02/16 00:00 97.4 56 18 118/67 (84) 96 11/01/16 20:00 96.8 92 18 164/76 (105) 95 11/01/16 16:00 97.9 68 14 139/79 (99) 95 11/01/16 12:31 62 11/01/16 12:00 97.2 65 14 134/78 (96) 96 11/01/16 11:01 95 Nasal Cannula 2.00 Result Diagram: 10/30/16 1125 Other Results Laboratory Tests Test 10/31/16 10:50 11/01/16 08:53 Prothrombin Time 44.2 SEC 39.7 SEC Prothromb Time International Ratio 3.8 RATIO 3.4 RATIO Imaging Last Impressions Chest X-Ray 10/28/16 0000 Signed Impressions: Service Date/Time: October 09:31 - CONCLUSION: 1. Bibasilar patchiness consistent with atelectasis and/or infiltrates. 2. Degenerative changes and scoliosis of the thoracic spine. 3. Cardiomegaly. Cornelius Rodrigues MD Mandible X-Ray 10/26/16 0000 Signed Impressions: Service Date/Time: Wednesday, October 26, 2016 17:59 - CONCLUSION: 1. Oval-shaped cystic lesion in the left mandible with no significant enhancement. Appearance is likely benign. 2. Mild enhancement in the soft tissues around the right mandible, probably mild cellulitis without discrete abscess. Collin Lancaster MD Neck CT 10/25/16 0000 Signed Impressions: Service Date/Time: Tuesday, October 25, 2016 13:25 - CONCLUSION: I cannot confirm an abscess. Abnormal mass expanding bone left mandible as described above. Terry Uribe MD FACR Objective Remarks General: NAD, AAOx3 Chest: CTA bilaterally Cardiac: Regular Abd: +BS, soft ND/NT Ext: No edema A/P Problem List: (1) Mandibular mass ICD Codes: R22.0 - Localized swelling, mass and lump, head Plan: - Pt admitted for concern of left mandible mass on CT imaging which looks expansile not destructive of bone. - MRI (10/26) --> mandibular mass appears benign - Pt will f/u with maxillofacial surgery as an outpt (2) Right lower lobe pneumonia ICD Codes: J18.1 - Lobar pneumonia, unspecified organism Status: Acute Plan: - Pt described hemoptysis upon admission - Imaging indicated a right lung PNA. - Legionella Ag was positive. - Pt was noted to have Coumadin toxicity as well and was given Vit K 5mg - Comgmt with Pulm Medicine - Case informally d/w ID. Will need to continue treatment with Levaquin for 21 days total. - Duonebs - Levaquin - IS - PT - DVT prophylaxis - PT - anticipate d/c to SNF 11/02 (3) Coumadin toxicity ICD Codes: T45.511A - Poisoning by anticoagulants, accidental (unintentional), initial encounter Plan: - INR 4.4 (10/30), 3.8 (10/31), 3.4 (11/01) - INR pending for today - Coumadin on hold (4) Atrial fibrillation, chronic ICD Codes: I48.2 - Chronic atrial fibrillation Status: Chronic Plan: - stable - metoprolol - Coumadin on hold, see above (5) Generalized weakness ICD Codes: R53.1 - Weakness Status: Acute Plan: continue IV fluid (6) HTN (hypertension) ICD Codes: I10 - Essential (primary) hypertension Status: Chronic (7) H/O prostate cancer ICD Codes: Z85.46 - Personal history of malignant neoplasm of prostate Status: Resolved Tarsha Whaley Nov 02, 2016 09:15 Alireza Bonilla DO Nov 08, 2016 11:58
[2016-11-02 09:27] VITALS: O2SAT 95
[2016-11-02 09:45] LABS: INTERNATIONAL NORMALIZED RATIO 2.4 RATIO; PROTHROMBIN TIME - PATIENT 27.5 SEC (9.8-11.6)
[2016-11-02] MEDS ORDERED: BENZ100 PO (10:22)
[2016-11-02] MEDS ORDERED: LEVO500T8 PO (10:22)
[2016-11-02] MEDS ORDERED: POTA20TA5 PO (10:22)
--- NOTE | 2016-11-02 10:25 | HHI.DCPOC ---
Discharge Care Plan Diagnosis: (1) Right lower lobe pneumonia (2) Coumadin toxicity (3) Mandibular mass (4) HTN (hypertension) (5) Generalized weakness (6) Atrial fibrillation, chronic (7) Hyperlipidemia Goals to Promote Your Health * To prevent worsening of your condition and complications * To maintain your health at the optimal level Directions to Meet Your Goals Take your medications as prescribed Follow your dietary instruction Follow activity as directed Keep your appointments as scheduled Take your immunizations and boosters as scheduled If your symptoms worsen call your PCP, if no PCP go to Urgent Care Center or Emergency Room Smoking is Dangerous to Your Health. Avoid second hand smoke Call the 24-hour hour crisis hotline for domestic abuse at Tarsha Whaley Nov 02, 2016 10:25 Alireza Bonilla DO Nov 08, 2016 12:01
--- NOTE | 2016-11-02 10:34 | HHI.DS ---
Discharge Summary Admission Date Oct 24, 2016 at 22:15 Discharge Date: Nov 02, 2016 Admitting Diagnosis severe sepsis, right lower lobe pneumonia (1) Mandibular mass Diagnosis: Principal ICD Codes: R22.0 - Localized swelling, mass and lump, head (2) Right lower lobe pneumonia Diagnosis: Secondary ICD Codes: J18.1 - Lobar pneumonia, unspecified organism Status: Acute (3) Coumadin toxicity Diagnosis: Secondary ICD Codes: T45.511A - Poisoning by anticoagulants, accidental (unintentional), initial encounter (4) Atrial fibrillation, chronic Diagnosis: Secondary ICD Codes: I48.2 - Chronic atrial fibrillation Status: Chronic (5) Generalized weakness Diagnosis: Secondary ICD Codes: R53.1 - Weakness Status: Acute (6) HTN (hypertension) Diagnosis: Secondary ICD Codes: I10 - Essential (primary) hypertension Status: Chronic (7) H/O prostate cancer Diagnosis: Secondary ICD Codes: Z85.46 - Personal history of malignant neoplasm of prostate Status: Resolved Consultants Dr. Diallo - Pulmonary Medicine Brief History The patient is an 81-year-old female that has had a fever since morning. The highest the temperature when at home was 102. He does not have it a cough, sore throat, ear pain but does have some loose stool. He denies any abdominal pain. He has had an appendectomy and a tumor removed from his abdomen. He does have nausea without vomiting. Patient stated went to a dentist and had xray showed some abnormality rt upper jaw and went to oral surgeon and said needed further evaluation. Patient also complaining overall not feeling well. In er had chest xray showing rt lower lobe pneumonia. Will admit for IV antibiotics and further work up will need CT jaw for evaluation of ? abnormality in rt jaw. Patient will also get CT abd/pelvis for evaluation of loose stool. CBC/BMP: 10/30/16 1125 Significant Findings Laboratory Tests Test 10/30/16 11:25 10/31/16 10:50 11/01/16 08:53 11/02/16 08:35 Prothrombin Time 51.5 SEC (9.8-11.6) 44.2 SEC (9.8-11.6) 39.7 SEC (9.8-11.6) 27.5 SEC (9.8-11.6) Random Glucose 146 MG/DL (74-106) Imaging Last Impressions Chest X-Ray 10/28/16 0000 Signed Impressions: Service Date/Time: October 09:31 - CONCLUSION: 1. Bibasilar patchiness consistent with atelectasis and/or infiltrates. 2. Degenerative changes and scoliosis of the thoracic spine. 3. Cardiomegaly. Cornelius Rodrigues MD Mandible X-Ray 10/26/16 0000 Signed Impressions: Service Date/Time: Wednesday, October 26, 2016 17:59 - CONCLUSION: 1. Oval-shaped cystic lesion in the left mandible with no significant enhancement. Appearance is likely benign. 2. Mild enhancement in the soft tissues around the right mandible, probably mild cellulitis without discrete abscess. Collin Lancaster MD Neck CT 10/25/16 0000 Signed Impressions: Service Date/Time: Tuesday, October 25, 2016 13:25 - CONCLUSION: I cannot confirm an abscess. Abnormal mass expanding bone left mandible as described above. Terry Uribe MD FACR PE at Discharge General: NAD, AAOx3 Chest: CTA bilaterally Cardiac: Regular Abd: +BS, soft ND/NT Ext: No edema Hospital Course Mandibular mass Pt admitted for concern of left mandible mass on CT imaging which looks expansile not destructive of bone. MRI (10/26) --> mandibular mass appears benign Pt will f/u with maxillofacial surgery as an outpt Right lower lobe pneumonia Pt described hemoptysis upon admission. Imaging indicated a right lung PNA. Legionella Ag was positive. Pulmonary Medicine was consulted. Pt was treated with IV Levaquin (starting 10/27) and Duonebs. Case informally d/w ID. Will need to continue treatment with Levaquin for 21 days total. Pt has improved clinically. He was not able to produce any sputum for culture following admission. - Pt was noted to have Coumadin toxicity as well and was given Vit K 5mg Coumadin toxicity INR 4.4 (10/30), 3.8 (10/31), 3.4 (11/01). Repeat INR 2.4 at discharge. Resume Coumadin upon discharge at previous home dosing but will need close monitoring while on Levaquin as this will likely increase his levels. Atrial fibrillation, chronic This has remained stable on Metoprolol Pt will need followup with Maxillofacial surgery for the mandibular mass He will need to followup with his PCP, Dr. Negrete, 1 week after discharge from SNF. Pt Condition on Discharge: Stable Discharge Disposition: Discharge to SNF Discharge Instructions DIET: Follow Instructions for: Heart Healthy Diet Activities you can perform: Regular-No Restrictions Follow up Referrals: Oral Maxillary Surgery - 2 Weeks with Raul Melendez DMD PCP Follow-up - [address] Negrete New Medications: Levofloxacin (Levofloxacin) 500 Mg Tablet 500 MG PO DAILY for Infection, #15 TAB 0 Refills Benzonatate (Tessalon Perles) 100 Mg Cap 200 MG PO TID PRN for cough for 10 Days, CAP Potassium Chloride Microencaps (Potassium Chloride Microencaps) 20 Meq Tab 20 MEQ PO BID for supplement, #62 TAB [guaiFEN-COD 200-20 MG/10ML LIQ] () 10 ML SYRP 10 ML PO Q4H PRN for cough, #1 Continued Medications: Alprazolam (Alprazolam) 0.5 Mg Tab 0.5 MG PO HS for insomnia, #30 TAB 0 Refills (This prescription has been renewed ) Ascorbic Acid (Ascorbic Acid) 500 Mg Tab 500 MG PO DAILY, TAB Atorvastatin (Atorvastatin) 20 Mg Tab 20 MG PO HS for Cholesterol Management, #30 TAB 0 Refills Dorzolamide-Timolol Opth Drops (Cosopt Opth Drops) 22.3-6.8 Mg/Ml Soln 1 DROP EACH EYE BID for Glaucoma, #1 BOTTLE 0 Refills Furosemide (Lasix) 40 Mg Tab 40 MG PO DAILY, #30 TAB 0 Refills Latanoprost Opth Drops (Latanoprost Opth Drops) 0.005% Drops 1 DROP EACH EYE HS for Glaucoma, #2.5 ML 0 Refills Refrigerate until opened. Metoprolol Tartrate (Metoprolol Tartrate) 25 Mg Tab 25 MG PO BID, #60 TAB 0 Refills Multiple Vitamin (Multi-Vitamin Daily) 1 Tab Tab 1 TAB PO DAILY for Nutritional Supplement, TAB 0 Refills Warfarin (Coumadin) 5 Mg Tab 5 MG PO DAILY for Blood Clot Prevention, #30 TAB 0 Refills mon,tue,wed,th,fri,sat Warfarin (Coumadin) 7.5 Mg Tab 7.5 MG PO DAILY for Prevent Blood Clot, #30 TAB 0 Refills 7.5mg sundays Discontinued Medications: Potassium Chloride ER (Potassium Chloride ER) 20 Meq Tab 20 MEQ PO DAILY for Electrolyte Replacement, #30 TAB 0 Refills Additional Information Patient examined. Assessment and plan formulated with Tarsha Whaley PA-C. I agree with the above. Tarsha Whaley Nov 02, 2016 10:34 Alireza Bonilla DO Nov 08, 2016 11:59
[2016-11-02 12:00] VITALS: BP 128/68; PULSE 86; RESP 16; TEMP 96.9; O2SAT 95
[2016-11-02] MEDS ORDERED: ALPR0.5T3 PO (13:15)
[2016-11-02] MEDS ORDERED: guaiFEN-COD 200-20 MG/10ML LIQ PO (13:15)
--- NOTE | 2016-11-02 13:37 | HHI.PR ---
Subjective Remarks 81 YOWM with RLL Pneumonia,Left Mandibular mass,HTN no fever no CP Still has cough, worse at night Legionella Ag positive Feels better, weak Objective Vital Signs Vital Signs Date Time Temp Pulse Resp B/P (MAP) Pulse Ox O2 Delivery O2 Flow Rate FiO2 11/02/16 09:27 95 Nasal Cannula 2.00 11/02/16 08:00 96.3 73 16 164/66 (98) 93 11/02/16 00:00 97.4 56 18 118/67 (84) 96 11/01/16 20:00 96.8 92 18 164/76 (105) 95 11/01/16 16:00 97.9 68 14 139/79 (99) 95 I/O 11/01/16 11/01/16 11/01/16 11/02/16 11/02/16 11/02/16 07:00 15:00 23:00 07:00 15:00 23:00 Intake Total 698 ml Output Total 550 ml Balance 698 ml -550 ml Intake Oral 698 ml Output Urine Total 550 ml # Voids 1 # Bowel Movements 1 1 Result Diagram: 10/30/16 1125 Objective Remarks GENERAL: WBWn WM, NAD SKIN: Warm and dry. HEAD: Normocephalic. EYES: No scleral icterus. No injection or drainage. NECK: Supple, trachea midline. No JVD or lymphadenopathy. CARDIOVASCULAR: Regular rate and rhythm without murmurs, gallops, or rubs. RESPIRATORY: Breath sounds equal bilaterally. No accessory muscle use. GASTROINTESTINAL: Abdomen soft, non-tender, nondistended. MUSCULOSKELETAL: No cyanosis, or edema. BACK: Nontender without obvious deformity. No CVA tenderness. A/P Assessment and Plan RLL Legionella Pneumonia HTN Left mandibular mass CAD,S/P CABG H/O ca Prostate PLAN: OOB and ambulate Tessalon 200 mg q 8 hrs prn DW pt and his . Stable from pulm standpoint DC plans underway for rehab Patrick Diallo MD Nov 02, 2016 13:37
== END 2016-11-02 16:41 | DRG 871 ==
LOC: PHED 20:34 → PHEDA 22:15 → PH3B 10-25 00:29 → HOCA 10-25 21:15
PROVIDERS: ADMIT Hospitalist; ATTEND Hospitalist
DX: A41.9 Sepsis, unspecified organism (principal); A48.1 Legionnaires' disease; E87.5 Hyperkalemia; R04.2 Hemoptysis; I48.2 Chronic atrial fibrillation; E86.0 Dehydration; F41.9 Anxiety disorder, unspecified; I25.10 Atherosclerotic heart disease of native coronary artery without angina pectoris; I10 Essential (primary) hypertension; E78.5 Hyperlipidemia, unspecified; M19.90 Unspecified osteoarthritis, unspecified site; Z96.651 Presence of right artificial knee joint; R65.20 Severe sepsis without septic shock; R33.9 Retention of urine, unspecified; R19.7 Diarrhea, unspecified; T45.511A Poisoning by anticoagulants, accidental (unintentional), initial encounter; R22.0 Localized swelling, mass and lump, head; Z92.21 Personal history of antineoplastic chemotherapy; Z92.3 Personal history of irradiation; Z95.1 Presence of aortocoronary bypass graft; Z85.46 Personal history of malignant neoplasm of prostate; Z87.891 Personal history of nicotine dependence
CPT/HCPCS: 70491; 70543; 71010; 71020; 76937; 80048; 80053; 81001; 82272; 83605; 83880; 84484; 85025; 85610; 87040; 87070; 87077; 87186; 87205; 87449; 87506; 93005; 94150; 94640; 94664; A9579; J0456; J0696; J1940; J1956; J2930; J7050; J7608; Q9967

== ENCOUNTER 2017-02-11 15:18 | Observation (INO) | payer MEDICARE ==
[~2017-02-11] VITALS: Ht 182.9 cm; Wt 110.0 kg
[~2017-02-11 15:18] MED LIST changes: +ALPR0.5T3 PO; -ASCO500 PO; +ASCO500T PO; +ATOR20TA15 PO; -ATOR20TA42 PO; +BENZ100 PO; -CLON.1 PO; +COUM7.5T PO; -DORZ1SOL2 EACH EYE; +DORZ2SOL7 EACH EYE; +FURO1TAB60 PO; -FURO20TA PO; -KCL20 PO; -LATA0.00 EACH EYE; +LATA0.002 EACH EYE; -LEVA500T PO; +LEVO500T8 PO; -METO25 PO; +METO25TA3 PO; +MULT-65 PO; -MULTCAP14 PO; +POTA20TA5 PO; -XANA0.5T PO; +guaiFEN-COD 200-20 MG/10ML LIQ PO
[2017-02-11 15:22] VITALS: BP 179/79; PULSE 76; TEMP 99.1; O2SAT 96
[2017-02-11] MEDS ORDERED: SODIUM CHLORIDE 0.9% FLUSH 10 ML FLUSH IVF PRN (16:30)
[2017-02-11] MEDS ORDERED: PANTOPRAZOLE SODIUM 40 MG VIAL IVP ONE (16:30)
[2017-02-11] MEDS ORDERED: ONDANSETRON HCL 4 MG/2 ML VIAL IVP ONE (16:30)
--- NOTE | 2017-02-11 16:41 | PD ---
HPI Chief Complaint: GI Complaint Time Seen by Provider: 16:27 Travel History International Travel<30 days: No Contact w/Intl Traveler<30days: No Traveled to known affect area: No History of Present Illness HPI 81-year-old male with PMH of HTN, CAD status post CABG, prostate CA, A. fib, on Coumadin, recently changed to Xarelto presents to the ED for evaluation of "a few hours" history of "spitting up blood." The patient states that he noticed the bleeding this afternoon. He endorses having a small dental surgery in the back left side of his mouth and he thinks this may be where the bleeding is coming from. Surgery was with Dr. Melendez, about 2 weeks ago. He states that he is otherwise feeling well. He denies headache, dizziness, chest pain, palpitations, shortness of breath, abdominal pain, nausea, vomiting, melena, hematochezia, dysuria, weakness. He states that he has taken 2 doses of Xarelto. He called Dr. Patrick today and was instructed to seek treatment in the ED. PFSH Past Medical History Hx Anticoagulant Therapy: Yes Arthritis: Yes (LOW BACK AND NECK) Blood Disorders: No Anxiety: Yes Depression: No Heart Rhythm Problems: Yes (AFIB) Cancer: Yes (PROSTATE ONLY-SEED IMPLANT) Cardiovascular Problems: Yes (A fib) High Cholesterol: Yes Chemotherapy: Yes Chest Pain: No Congestive Heart Failure: No Coronary Artery Disease: Yes Diabetes: No Endocrine: No Gastrointestinal Disorders: Yes (DIVERTICULITIS) GERD: No Glaucoma: No Genitourinary: Yes Hepatitis: No Hiatal Hernia: No Hypertension: Yes Immune Disorder: No Implanted Vascular Access Dvce: Yes Musculoskeletal: Yes (R KNEE REPLACEMENT) Neurologic: No Psychiatric: No Reproductive: No Respiratory: No Radiation Therapy: Yes (radiation seeds) Thyroid Disease: No Past Surgical History Abdominal Surgery: No AICD: No Body Medical Devices: STERNAL WIRES; R KNEE REPLACEMENT Cardiac Surgery: Yes (5 VESSEL HEART BYPASS) Coronary Artery Bypass Graft: Yes (x 5 vessel) Ear Surgery: No Endocrine Surgery: No Eye Surgery: Yes (bilat cataract) Genitourinary Surgery: Yes (PROSTATE CA-RADIATION SEEDS) Joint Replacement: Yes (RIGHT TOTAL KNEE) Oral Surgery: No Pacemaker: No Thoracic Surgery: No Other Surgery: Yes Social History Alcohol Use: No Tobacco Use: No Substance Use: No Allergies-Medications (Allergen,Severity, Reaction): Coded Allergies: onion (Verified Allergy, Severe, severe gi upset, 10/24/16) Reported Meds & Prescriptions Reported Meds & Active Scripts Active [guaiFEN-COD 200-20 MG/10ML LIQ] 10 ML Syrp 10 Ml PO Q4H PRN Alprazolam 0.5 Mg Tab 0.5 Mg PO HS Levofloxacin 500 Mg Tablet 500 Mg PO DAILY Tessalon Perles (Benzonatate) 100 Mg Cap 200 Mg PO TID PRN 10 Days Potassium Chloride Microencaps 20 Meq Tab 20 Meq PO BID Reported Coumadin (Warfarin) 7.5 Mg Tab 7.5 Mg PO DAILY 7.5mg sundays Coumadin (Warfarin) 5 Mg Tab 5 Mg PO DAILY tue,tue,tue,,tue,sat Multi-Vitamin Daily (Multiple Vitamin) 1 Tab Tab 1 Tab PO DAILY Metoprolol Tartrate 25 Mg Tab 25 Mg PO BID Latanoprost Opth Drops (Latanoprost) 0.005% Drops 1 Drop EACH EYE HS Refrigerate until opened. Lasix (Furosemide) 40 Mg Tab 40 Mg PO DAILY Cosopt Opth Drops (Dorzolamide-Timolol Opth Drops) 22.3-6.8 Mg/Ml Soln 1 Drop EACH EYE BID Atorvastatin (Atorvastatin Calcium) 20 Mg Tab 20 Mg PO HS Ascorbic Acid 500 Mg Tab 500 Mg PO DAILY Review of Systems Except as stated in HPI: all other systems reviewed are Neg Physical Exam Narrative GENERAL: Well-nourished, well-developed pleasant white male in no acute distress. SKIN: Focused skin assessment warm/dry. HEAD: Normocephalic. EYES: No scleral icterus. No injection or drainage. NECK: Supple, trachea midline. No JVD or lymphadenopathy. DENTAL: No loose or chipped teeth. No malocclusion. There is a 1 cm open area just posterior to the last tooth on the bottom left jaw with a small clot and active bleeding. CARDIOVASCULAR: Regular rate and rhythm without murmurs, gallops, or rubs. RESPIRATORY: Breath sounds clear and equal bilaterally. No accessory muscle use. GASTROINTESTINAL: Abdomen soft, non-tender, nondistended. Active bowel sounds. MUSCULOSKELETAL: No cyanosis, or edema. BACK: Nontender without obvious deformity. No CVA tenderness. Data Data Last Documented VS Vital Signs Date Time Temp Pulse Resp B/P (MAP) Pulse Ox O2 Delivery O2 Flow Rate FiO2 02/11/17 19:27 87 18 160/79 (106) 99 Room Air 02/11/17 15:22 99.1 Orders Orders Complete Blood Count With Diff (02/11/17 16:27) Comprehensive Metabolic Panel (02/11/17 16:27) Prothrombin Time / Inr (Pt) (02/11/17 16:27) Act Partial Throm Time (Ptt) (02/11/17 16:27) Type And Screen (02/11/17 16:27) Ecg Monitoring (02/11/17 16:27) Iv Access Insert/Monitor (02/11/17 16:27) Oximetry (02/11/17 16:27) Ondansetron Inj (Zofran Inj) (02/11/17 16:30) Pantoprazole Inj (Protonix Inj) (02/11/17 16:30) Sodium Chloride 0.9% Flush (Ns Flush) (02/11/17 16:30) Microfib Col Hemostat Pow Pack (Avitene (02/11/17 19:15) Lidoca-Epi Pf 2%-1:200,000 Inj (Xylocain (02/11/17 19:45) Consult Oral, Facial Surgery (02/11/17 ) Labs Laboratory Tests Test 02/11/17 16:40 White Blood Count 6.9 TH/MM3 Red Blood Count 3.87 MIL/MM3 Hemoglobin 13.9 GM/DL Hematocrit 39.2 % Mean Corpuscular Volume 101.3 FL Mean Corpuscular Hemoglobin 36.0 PG Mean Corpuscular Hemoglobin Concent 35.6 % Red Cell Distribution Width 13.3 % Platelet Count 276 TH/MM3 Mean Platelet Volume 7.5 FL Neutrophils (%) (Auto) 68.3 % Lymphocytes (%) (Auto) 17.4 % Monocytes (%) (Auto) 13.1 % Eosinophils (%) (Auto) 0.8 % Basophils (%) (Auto) 0.4 % Neutrophils # (Auto) 4.7 TH/MM3 Lymphocytes # (Auto) 1.2 TH/MM3 Monocytes # (Auto) 0.9 TH/MM3 Eosinophils # (Auto) 0.1 TH/MM3 Basophils # (Auto) 0.0 TH/MM3 CBC Comment DIFF FINAL Differential Comment Prothrombin Time 23.2 SEC Prothromb Time International Ratio 2.3 RATIO Activated Partial Thromboplast Time 39.5 SEC Blood Urea Nitrogen 15 MG/DL Creatinine 1.26 MG/DL Random Glucose 103 MG/DL Total Protein 8.1 GM/DL Albumin 3.9 GM/DL Calcium Level 9.4 MG/DL Alkaline Phosphatase 79 U/L Aspartate Amino Transf (AST/SGOT) 17 U/L Alanine Aminotransferase (ALT/SGPT) 18 U/L Total Bilirubin 0.9 MG/DL Sodium Level 135 MEQ/L Potassium Level 4.4 MEQ/L Chloride Level 102 MEQ/L Carbon Dioxide Level 26.6 MEQ/L Anion Gap 6 MEQ/L Estimat Glomerular Filtration Rate 55 ML/MIN [facility] Medical Decision Making Medical Screen Exam Complete: Yes Emergency Medical Condition: Yes Differential Diagnosis Supratherapeutic INR versus dental abscess versus less likely GI bleed versus other Narrative Course 81-year-old male with PMH of A. fib, hypertension presents to the ED for evaluation of ~ one-hour history of "spitting up blood." Patient states that he recently changed from Coumadin to Xarelto. He has taken a total of 2 doses of Xarelto. On exam the patient has bleeding from a subcentimeter wound on the left lower posterior mandible. Packing was placed without effect. Dr. Melendez, who performed the original surgery evaluated the patient in the ED and performed her procedure, including packing Avitene into the wound. He recommends that the patient be observed overnight to evaluate for future bleeding issues. Call placed to [facility]. I spoke with Dr. Bonilla who agrees to accept the patient to the medicine service for observation. Please see medicine notes for disposition. Arlen Rodríguez Feb 11, 2017 16:41
[2017-02-11 16:45] VITALS: O2SAT 98
[2017-02-11 17:08] LABS: AUTOMATED NEUTROPHIL # 4.7 TH/MM3 (1.8-7.7); BASOPHIL % 0.4 % (0.0-2.0); EOSINOPHIL # 0.1 TH/MM3 (0-0.4); EOSINOPHIL % 0.8 % (0.0-4.0); HEMATOCRIT 39.2 % (39.0-51.0); HEMOGLOBIN 13.9 GM/DL (13.0-17.0); LYMPH % 17.4 % (9.0-44.0); LYMPHOCYTE # 1.2 TH/MM3 (1.0-4.8); MEAN CELL VOLUME 101.3 FL (80.0-100.0); MEAN CORPUSCULAR HGB CONC 35.6 % (32.0-36.0); MEAN PLATELET VOLUME 7.5 FL (7.0-11.0); MONO % 13.1 % (0.0-8.0); MONOCYTE # 0.9 TH/MM3 (0-0.9); NEUT % 68.3 % (16.0-70.0); PLATELET COUNT 276 TH/MM3 (150-450); RED BLOOD COUNT 3.87 MIL/MM3 (4.50-5.90); RED CELL DISTRIBUTION WIDTH 13.3 % (11.6-17.2); WHITE BLOOD COUNT 6.9 TH/MM3 (4.0-11.0)
[2017-02-11 17:26] LABS: INTERNATIONAL NORMALIZED RATIO 2.3 RATIO; PROTHROMBIN TIME - PATIENT 23.2 SEC (9.8-11.6)
[2017-02-11 17:52] LABS: ALBUMIN 3.9 GM/DL (3.4-5.0); BICARBONATE 26.6 MEQ/L (21.0-32.0); BLOOD UREA NITROGEN 15 MG/DL (7-18); CALCIUM 9.4 MG/DL (8.5-10.1); CHLORIDE 102 MEQ/L (98-107); CREATININE 1.26 MG/DL (0.60-1.30); GLOMERULAR FILTRATION RATE 55 ML/MIN (>89); GLUCOSE,RANDOM 103 MG/DL (74-106); SODIUM (NA) 135 MEQ/L (136-145)
[2017-02-11 17:54] LABS: AST (GOT) 17 U/L (15-37)
[2017-02-11 17:57] LABS: ALKALINE PHOSPHATASE 79 U/L (45-117); ALT (GPT) 18 U/L (12-78); TOTAL BILIRUBIN ADULT 0.9 MG/DL (0.2-1.0); TOTAL PROTEIN 8.1 GM/DL (6.4-8.2)
[2017-02-11] MEDS ORDERED: MICROFIBRILLAR COLLAGEN HEMOSTAT 1 GM PKT ONE (19:15)
[2017-02-11 19:27] VITALS: BP 160/79; PULSE 87; RESP 18; O2SAT 99
[2017-02-11] MEDS ORDERED: LIDOCAINE 2%/EPINEPHrine PF 1:200,000 20ML SDV INFIL ONE (19:45)
--- NOTE | 2017-02-11 19:56 | PD ---
Physical Exam Narrative Received sign out from previous team to follow up with Dr. Melendez's recommendation 81yo M with bleeding from left lower tooth today. Pt is on xarelto and bleeding has been going on for a few hours. Pt had a biopsy of a cyst in his mandible by Dr. Melendez about 1.5 weeks ago and has been doing well. Denies any trauma and said bleeding was spontaneous. Denies any other complaints. Labs reviewed, no leukocytosis. H/H normal at 13.9/39.2. CMP unremarkable. INR therapeutic at 2.3. Dr. Melendez was consulted and came in to evaluate the patient. He was able to obtain hemostasis but felt that pt should be admitted to medicine to be observed overnight. Will admit to [facility]. Data Data Last Documented VS Vital Signs Date Time Temp Pulse Resp B/P (MAP) Pulse Ox O2 Delivery O2 Flow Rate FiO2 02/11/17 19:27 87 18 160/79 (106) 99 Room Air 02/11/17 15:22 99.1 Orders Orders Complete Blood Count With Diff (02/11/17 16:27) Comprehensive Metabolic Panel (02/11/17 16:27) Prothrombin Time / Inr (Pt) (02/11/17 16:27) Act Partial Throm Time (Ptt) (02/11/17 16:27) Type And Screen (02/11/17 16:27) Ecg Monitoring (02/11/17 16:27) Iv Access Insert/Monitor (02/11/17 16:27) Oximetry (02/11/17 16:27) Ondansetron Inj (Zofran Inj) (02/11/17 16:30) Pantoprazole Inj (Protonix Inj) (02/11/17 16:30) Sodium Chloride 0.9% Flush (Ns Flush) (02/11/17 16:30) Microfib Col Hemostat Pow Pack (Avitene (02/11/17 19:15) Lidoca-Epi Pf 2%-1:200,000 Inj (Xylocain (02/11/17 19:45) Consult Oral, Facial Surgery (02/11/17 ) Labs Laboratory Tests Test 02/11/17 16:40 White Blood Count 6.9 TH/MM3 Red Blood Count 3.87 MIL/MM3 Hemoglobin 13.9 GM/DL Hematocrit 39.2 % Mean Corpuscular Volume 101.3 FL Mean Corpuscular Hemoglobin 36.0 PG Mean Corpuscular Hemoglobin Concent 35.6 % Red Cell Distribution Width 13.3 % Platelet Count 276 TH/MM3 Mean Platelet Volume 7.5 FL Neutrophils (%) (Auto) 68.3 % Lymphocytes (%) (Auto) 17.4 % Monocytes (%) (Auto) 13.1 % Eosinophils (%) (Auto) 0.8 % Basophils (%) (Auto) 0.4 % Neutrophils # (Auto) 4.7 TH/MM3 Lymphocytes # (Auto) 1.2 TH/MM3 Monocytes # (Auto) 0.9 TH/MM3 Eosinophils # (Auto) 0.1 TH/MM3 Basophils # (Auto) 0.0 TH/MM3 CBC Comment DIFF FINAL Differential Comment Prothrombin Time 23.2 SEC Prothromb Time International Ratio 2.3 RATIO Activated Partial Thromboplast Time 39.5 SEC Blood Urea Nitrogen 15 MG/DL Creatinine 1.26 MG/DL Random Glucose 103 MG/DL Total Protein 8.1 GM/DL Albumin 3.9 GM/DL Calcium Level 9.4 MG/DL Alkaline Phosphatase 79 U/L Aspartate Amino Transf (AST/SGOT) 17 U/L Alanine Aminotransferase (ALT/SGPT) 18 U/L Total Bilirubin 0.9 MG/DL Sodium Level 135 MEQ/L Potassium Level 4.4 MEQ/L Chloride Level 102 MEQ/L Carbon Dioxide Level 26.6 MEQ/L Anion Gap 6 MEQ/L Estimat Glomerular Filtration Rate 55 ML/MIN [facility] Supervised Visit with HENNA: Yes Diagnosis Primary Impression: Hemorrhage Admitting Information Admitting Physician Requests: Observation Keena Edge DO Feb 11, 2017 19:56
--- NOTE | 2017-02-11 21:20 | MB ---
cc: VALARIE MELENDEZ DMD DATE OF CONSULTATION 02/11/17 REASON FOR CONSULTATION Bleeding from left posterior mandible. HISTORY OF PRESENT ILLNESS This is an 81-year-old male who is a patient of our office who presented to the ER status post bleeding intraorally from his left mandible site since 1 o'clock this afternoon. The patient was on Coumadin until two days ago and he was switched to Xarelto by his primary physician, Dr. Negrete. All of a sudden spontaneously the patient reports that he started bleeding at 1 o'clock this afternoon. He called Dr. Negrete who advised him to come to the ER. About two weeks ago, the patient had a radiolucent lesion that was noted on the left posterior mandible. I did an incisional biopsy of that and it came back as an odontogenic keratosis. I saw the patient for followup two days ago in the office and the site was totally hemostatic. The wound margins were all well approximated. No complaints, everything was healing fine. The plan is later on for removal and curettage of the cyst. Unfortunately, after he switched to Xarelto for the last two days, it just spontaneously started bleeding. I have seen and examined this patient this evening. His is at bedside. His nurse is at bedside. He is alert, awake and oriented x3 in no acute distress. Denies any fever, chills, nausea, vomiting, any shortness of breath and any difficulty breathing or any difficulty swallowing. PAST MEDICAL HISTORY 1. Atrial fibrillation 2. Prostate cancer. 3. Chemotherapy for prostate cancer. 4. Hyperlipidemia. 5. Coronary artery disease. 6. Radiation treatment for his prostate cancer. 7. History of arthritis. PAST SURGICAL HISTORY 1. History of right knee replacement 2. Heart bypass. 3. Coronary artery bypass graft of five vessels. 4. Cataract surgery. 5. Sternal wires. SOCIAL HISTORY Denies any alcohol, tobacco, illicit drugs. MEDICATIONS As per report, but 1. Alprazolam 2. Levofloxacin 3. Tessalon. 4. Potassium 5. Was on Coumadin 7.5 mg and then five also mg and now he is on Xarelto. 6. Lasix 7. Atorvastatin 8. Ascorbic acid 9. Metoprolol 10. Lantoprost. ALLERGIES NO KNOWN DRUG ALLERGIES. PHYSICAL EXAMINATION The patient is seen. No gross facial edema. No neck edema. Intraorally, the area where I did the biopsy that was done on the posterior aspect of the mandible on the gingival soft tissue, has persistent small oozing that is noted. Does not appear arterial. There is some liver clot that is also noted there. There is no elevation of floor of the mouth or the tongue. There is no trismus noted. Oropharynx appears clear at this point. There is no intraoral edema that is noted. VITAL SIGNS: Temperature 99.1, pulse is 87, respirations 18, blood pressure 160/79 with oxygen saturation of 99. LABORATORY DATA White count 6.9 with an H&H of 13.9 and 39.2 with platelets of 276. PT is 23.2, INR is 2.3 with a PTT of 39.5. IMPRESSION AND PLAN This is an 81-year-old male who approximately two weeks ago had an incisional biopsy performed at our office, came back as odontogenic keratosis and then followed up a few days ago in our office when the biopsy site was completely hemostatic and healed. Then 2 days ago he switched from the Coumadin to his Xarelto as per his primary physician, Dr. Negrete, and then spontaneously started bleeding now at 1 o'clock this afternoon. At this point, the plan is to help contain that bleeding. 2% lidocaine with 1:200,000 epinephrine was injected over the left mandible site. Approximately 3 mL. Used the Bovie to help cauterize the bleeder and then packed that site with Avitene and then snow to help control hemostasis. Gauze was placed. There was good hemostasis at this point. There is no bleeding that is noted. We will advise to keep the patient under observation tonight and reevaluate tomorrow. We will advise the medicine department, [facility], to admit him. And then have them speak with his primary to see how his anticoagulation needs to be monitored and attain what medications he needs to be on. ADDENDUM The patient's nurse as well as Shane ___ from OR help assisted me during this procedure for hemostasis control. This dictation was fax to my office for [facility]. Thank you Valarie Melendez, DMD FIELD SERVICE SUPERVISOR/SA /8:27 PM /8:40 PM
[2017-02-11] MEDS ORDERED: ACETAMINOPHEN/HYDROcodone 325 MG/5 MG TAB PO PRN (21:45)
[2017-02-11] MEDS ORDERED: ACETAMINOPHEN 325 MG TAB PO PRN (21:45)
[2017-02-11] MEDS ORDERED: ONDANSETRON HCL 4 MG/2 ML VIAL IVP PRN (22:00)
[2017-02-11] MEDS ORDERED: ALPRAZolam 0.5 MG TAB PO SCH (22:00)
[2017-02-11] MEDS ORDERED: MAGNESIUM HYDROXIDE SUSP 30 ML CUP PO PRN (22:00)
[2017-02-11] MEDS ORDERED: SODIUM CHLORIDE 0.9% FLUSH 10 ML FLUSH IV FLUSH PRN (22:00)
[2017-02-11] MEDS ORDERED: NALOXONE HCL 0.4 MG/ML AMP IV PUSH PRN (22:00)
[2017-02-11 22:13] VITALS: BP 166/94; PULSE 76; RESP 18; TEMP 98.8; O2SAT 96
--- NOTE | 2017-02-11 22:51 | RADRPT ---
EXAM DATE/TIME: 02/11/2017 22:34 [facility] COMPARISON: CHEST SINGLE AP, October 28, 2016, 9:31. INDICATIONS : Cough. MEDICAL HISTORY : Cardiovascular disease. Hypertension. Carcinoma, prostate. SURGICAL HISTORY : CABG. ENCOUNTER: Initial ACUITY: 1 day PAIN SCORE: 0/10 LOCATION: chest FINDINGS: A single view of the chest demonstrates the lungs to be symmetrically aerated without evidence of mas s, infiltrate or effusion. The heart is mildly enlarged, stable from prior. Mild tortuosity of the descending thoracic aorta.. Multiple healed right rib fractures with associated localized pleural th ickening. Evidence of prior median sternotomy and CABG with intact sternal wire sutures.. CONCLUSION: No acute findings. No infiltrate seen. Luis E Raphael MD on February 11, 2017 at 22:48 Board Certified Radiologist. This report was verified electronically.
[2017-02-11] MEDS: NS + KCL 20 MEQ INJ 1,000 ML IV SCH (22:53)
[2017-02-11] MEDS: METOPROLOL TARTRATE 25 MG TAB PO SCH (22:57)
[2017-02-11] MEDS: ACETAMINOPHEN 325 MG TAB PO PRN (22:57)
[2017-02-11] MEDS ORDERED: DORZOLAMIDE/TIMOLOL OPTH SOLN 10 ML BTL EACH EYE SCH (23:00)
[2017-02-11] MEDS ORDERED: LATANOPROST 0.005% OPHT SOLN 2.5 ML BTL EACH EYE SCH (23:00)
[2017-02-11] MEDS ORDERED: SULF1TAB23 PO (23:04)
[2017-02-12] VITALS (7 sets, daily range): BP systolic 147–170; BP diastolic 64–90; PULSE 53–71; RESP 18; TEMP 98.3–98.4; O2SAT 95–98
[2017-02-12] MEDS ORDERED: ENALAPRILAT 1.25 MG/ML VIAL IV PUSH PRN (03:00)
[2017-02-12] MEDS ORDERED: cloNIDine HCL 0.2 MG TAB PO PRN (03:00)
[2017-02-12] MEDS: ACETAMINOPHEN 325 MG TAB PO PRN (05:10)
--- NOTE | 2017-02-12 07:40 | HHI.PR ---
Subjective Remarks pt seen and examined, at bedside aaox3, nad tolerating po liquid, no complaints s/p local hemostatic measures with cautery/avtine yesterday evening sudden bleeding started around 1 pm yesterday; hemostatic now Coumadin was stopped and pt was switched to Xarelto 2 days ago hemostatic overnight, no acute overnight events Objective Vital Signs Date Time Temp Pulse Resp B/P (MAP) Pulse Ox O2 Delivery O2 Flow Rate FiO2 02/12/17 06:47 160/90 (113) Automatic Cuff 02/12/17 06:18 170/82 (111) 02/12/17 03:40 98.3 62 18 162/80 (107) 96 02/12/17 00:07 98.4 53 18 152/74 (100) 95 02/11/17 22:13 98.8 76 18 166/94 (118) 96 02/11/17 21:40 02/11/17 19:27 87 18 160/79 (106) 99 Room Air 02/11/17 16:45 98 Room Air 02/11/17 15:22 99.1 76 179/79 (112) 96 Result Diagram: 02/11/17 1640 02/11/17 1640 Objective Remarks mild left mandible edema no neck edema intraorally tissues pink/well perfused left posterior mandible; hemostatic, no active heme noted, clot noted no elevation fom/tongue no trismus, no tenderness Assessment and Plan Assessment and Plan s/p local hemostatic measures with cautery/avtine yesterday evening sudden bleeding started around 1 pm yesterday; hemostatic now Coumadin was stopped and pt was switched to Xarelto 2 days ago - approx. 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
[2017-02-12] MEDS: METOPROLOL TARTRATE 25 MG TAB PO SCH (07:56)
[2017-02-12] MEDS ORDERED: CLON0.1T PO (08:12)
[2017-02-12] MEDS ORDERED: TIMO0.5S30 EACH EYE (08:12)
[2017-02-12] MEDS ORDERED: POTA1TAB4 PO (08:12)
[2017-02-12] MEDS ORDERED: calcium 600 PO (08:13)
[2017-02-12] MEDS ORDERED: ASCOPOW PO (08:17)
[2017-02-12] MEDS ORDERED: TYLENOL PM PO (08:17)
[2017-02-12] MEDS ORDERED: MULTTAB67 PO (08:17)
[2017-02-12 08:47] LABS: AUTOMATED NEUTROPHIL # 5.9 TH/MM3 (1.8-7.7); BASOPHIL % 0.3 % (0.0-2.0); EOSINOPHIL % 0.5 % (0.0-4.0); HEMATOCRIT 38.9 % (39.0-51.0); HEMOGLOBIN 13.7 GM/DL (13.0-17.0); LYMPH % 11.4 % (9.0-44.0); LYMPHOCYTE # 0.9 TH/MM3 (1.0-4.8); MEAN CELL VOLUME 100.9 FL (80.0-100.0); MEAN CORPUSCULAR HEMOGLOBIN 35.4 PG (27.0-34.0); MEAN CORPUSCULAR HGB CONC 35.1 % (32.0-36.0); MEAN PLATELET VOLUME 7.7 FL (7.0-11.0); MONO % 16.1 % (0.0-8.0); MONOCYTE # 1.3 TH/MM3 (0-0.9); NEUT % 71.7 % (16.0-70.0); PLATELET COUNT 238 TH/MM3 (150-450); RED BLOOD COUNT 3.86 MIL/MM3 (4.50-5.90); RED CELL DISTRIBUTION WIDTH 13.1 % (11.6-17.2); WHITE BLOOD COUNT 8.2 TH/MM3 (4.0-11.0)
[2017-02-12 08:53] LABS: INTERNATIONAL NORMALIZED RATIO 1.8 RATIO
[2017-02-12] MEDS ORDERED: SODIUM CHLORIDE 0.9% FLUSH 10 ML FLUSH IV FLUSH SCH (09:00)
[2017-02-12 09:10] LABS: BICARBONATE 23.4 MEQ/L (21.0-32.0); CALCIUM 8.8 MG/DL (8.5-10.1); CREATININE 1.02 MG/DL (0.60-1.30)
--- NOTE | 2017-02-12 09:27 | HHI.HP ---
HPI Service [facility] Hospitalists Primary Care Physician Leonardo Negrete MD Admission Diagnosis intraoral bleeding Chief Complaint: mouth bleeding Travel History International Travel<30 Days: No Contact w/Intl Traveler <30 Da: No Traveled to Known Affected Are: No History of Present Illness This it an 81-year-old male patient with past medical history which includes hypertension, atrial fibrillation recently on Coumadin then changed to Xarelto 2 days ago, CAD status post coronary artery bypass graft 5, hyperlipidemia, prostate cancer status post radiation and arthritis. Present 2 weeks ago patient had an incisional biopsy done at the oral surgeon's office initially hemostasis was achieved and appears the patient's Coumadin was supposed to Xarelto approximately 2 days ago and then 02/11/2017 he began having spontaneous bleeding from the prior biopsy site on the left posterior mandible. Bleeding has resolved and patient is asking to go home. Patient reports he feels well denies feeling dizzy, lightheaded, shortness of breath, chest pain, nausea, vomiting, diarrhea, constipation, fevers or chills Review of Systems Constitutional: DENIES: Fatigue, Fever, Chills Eyes: DENIES: Blurred vision, Diplopia, Vision loss Respiratory: DENIES: Cough, Sputum production, Shortness of breath Cardiovascular: DENIES: Chest pain, Palpitations, Lower Extremity Edema Gastrointestinal: DENIES: Abdominal pain, Constipation, Diarrhea, Nausea, Vomiting Neurologic: DENIES: Abnormal gait, Headache, Localized weakness, Speech Problems Psychiatric: DENIES: Anxiety, Confusion, Depression Past Family Social History Past Medical History Atrial fibrillation Prostate cancer s/p chemotherapy and radiation Hyperlipidemia. Coronary artery disease. History of arthritis. Past Surgical History History of right knee replacement Coronary artery bypass graft of five vessels. Cataract surgery. Appendectomy Reported Medications [guaiFEN-COD 200-20 MG/10ML LIQ] 10 ML Syrp 10 Ml PO Q4H PRN Alprazolam 0.5 Mg Tab 0.5 Mg PO HS Levofloxacin 500 Mg Tablet 500 Mg PO DAILY Tessalon Perles (Benzonatate) 100 Mg Cap 200 Mg PO TID PRN 10 Days [Vitamin C] 1,000 PO DAILY [Tylenol Pm] Unknown Dose PO Multiple Vitamin 1 Tab Unknown Dose PO DAILY [calcium 600] 1 Tab PO DAILY K-Tab (Potassium Chloride) 20 Meq Tab 20 Meq PO BID Timolol Opth Drops 0.5 % Soln 1 Drop EACH EYE BID Timolol Opth Drops 0.5 % Soln 1 Drop EACH EYE BID Clonidine (Clonidine HCl) 0.1 Mg Tab 0.1 Mg PO DAILY PRN Sulfamethoxazole-Trimethoprim 800-160 Mg Tab 1 Tab PO BID 7 Days Coumadin (Warfarin) 7.5 Mg Tab 5 Mg PO DAILY 7.5mg sundays Coumadin (Warfarin) 5 Mg Tab 5 Mg PO DAILY mon,tue,wed,,tue,sat Multi-Vitamin Daily (Multiple Vitamin) 1 Tab Tab 1 Tab PO DAILY Metoprolol Tartrate 25 Mg Tab 25 Mg PO BID Latanoprost Opth Drops (Latanoprost) 0.005% Drops 1 Drop EACH EYE HS Refrigerate until opened. Lasix (Furosemide) 40 Mg Tab 20 Mg PO DAILY Cosopt Opth Drops (Dorzolamide-Timolol Opth Drops) 22.3-6.8 Mg/Ml Soln 1 Drop EACH EYE BID Atorvastatin (Atorvastatin Calcium) 20 Mg Tab 20 Mg PO HS Ascorbic Acid 500 Mg Tab 500 Mg PO DAILY Allergies: Coded Allergies: onion (Verified Allergy, Severe, severe gi upset, 10/24/16) Active Ordered Medications Current Medications Medications (Trade) Dose Ordered Sig/Evan Route Start Time Stop Time Status Last Admin (NS Flush) 2 ml UNSCH PRN IVF 02/11/17 16:30 (NS Flush) 2 ml UNSCH PRN IV FLUSH 02/11/17 22:00 (NS Flush) 2 ml BID IV FLUSH 02/12/17 09:00 (Tylenol) 650 mg Q4H PRN PO 02/11/17 21:45 (Zofran Inj) 4 mg Q6H PRN IVP 02/11/17 22:00 (Narcan Inj) 0.4 mg UNSCH PRN IV PUSH 02/11/17 22:00 (Milk Of Magnesia Liq) 30 ml Q12H PRN PO 02/11/17 22:00 Potassium Chloride/Sodium Chloride 1,000 ml @ 84 mls/hr [id number] IV 02/11/17 22:00 02/11/17 22:53 (Xanax) 0.5 mg HS PO 02/11/17 22:00 02/11/17 22:57 (Lopressor) 25 mg BID PO 02/11/17 22:00 02/12/17 07:56 (Tylenol) 650 mg Q4H PRN PO 02/11/17 21:45 02/12/17 05:10 ([place] 5-325 Mg) 1 tab Q4H PRN PO 02/11/17 21:45 (Catapres) 0.2 mg Q6H PRN PO 02/12/17 03:00 (Vasotec Inj) 1.25 mg Q6H PRN IV PUSH 02/12/17 03:00 Family History Reviewed and noncontributory Social History Denies any alcohol, tobacco, illicit drugs. Physical Exam Vital Signs Vital Signs Date Time Temp Pulse Resp B/P (MAP) Pulse Ox O2 Delivery O2 Flow Rate FiO2 02/12/17 07:55 71 02/12/17 06:47 160/90 (113) Automatic Cuff 02/12/17 06:18 170/82 (111) 02/12/17 03:40 98.3 62 18 162/80 (107) 96 02/12/17 00:07 98.4 53 18 152/74 (100) 95 02/11/17 22:13 98.8 76 18 166/94 (118) 96 02/11/17 21:40 02/11/17 19:27 87 18 160/79 (106) 99 Room Air 02/11/17 16:45 98 Room Air 02/11/17 15:22 99.1 76 179/79 (112) 96 Physical Exam GENERAL: This is a well-nourished, well-developed patient, in no apparent distress. SKIN: No rashes, ecchymoses or lesions. Cool and dry. HEAD: Atraumatic. Normocephalic. No temporal or scalp tenderness. EYES: Pupils equal round and reactive. Extraocular motions intact. No scleral icterus. No injection or drainage. ENT: Nose without bleeding, purulent drainage or septal hematoma. Throat without erythema, tonsillar hypertrophy or exudate. Uvula midline. Airway patent. NECK: Trachea midline. No JVD or lymphadenopathy. Supple, nontender, no meningeal signs. CARDIOVASCULAR: Irregularly irregular RESPIRATORY: Clear to auscultation. Breath sounds equal bilaterally. GASTROINTESTINAL: Abdomen soft, non-tender, nondistended. MUSCULOSKELETAL: Extremities without clubbing, cyanosis, or edema. No joint tenderness, effusion, or edema noted. No calf tenderness. Negative Homans sign bilaterally. NEUROLOGICAL: Awake and alert. No focal deficits. Motor and sensory grossly within normal limits. Five out of 5 muscle strength in all muscle groups. Normal speech. Laboratory Laboratory Tests Test 02/11/17 16:40 02/12/17 08:15 White Blood Count 6.9 8.2 Red Blood Count 3.87 3.86 Hemoglobin 13.9 13.7 Hematocrit 39.2 38.9 Mean Corpuscular Volume 101.3 100.9 Mean Corpuscular Hemoglobin 36.0 35.4 Mean Corpuscular Hemoglobin Concent 35.6 35.1 Red Cell Distribution Width 13.3 13.1 Platelet Count 276 238 Mean Platelet Volume 7.5 7.7 Neutrophils (%) (Auto) 68.3 71.7 Lymphocytes (%) (Auto) 17.4 11.4 Monocytes (%) (Auto) 13.1 16.1 Eosinophils (%) (Auto) 0.8 0.5 Basophils (%) (Auto) 0.4 0.3 Neutrophils # (Auto) 4.7 5.9 Lymphocytes # (Auto) 1.2 0.9 Monocytes # (Auto) 0.9 1.3 Eosinophils # (Auto) 0.1 0.0 Basophils # (Auto) 0.0 0.0 CBC Comment DIFF FINAL DIFF FINAL Differential Comment Prothrombin Time 23.2 18.0 Prothromb Time International Ratio 2.3 1.8 Activated Partial Thromboplast Time 39.5 Blood Urea Nitrogen 15 16 Creatinine 1.26 1.02 Random Glucose 103 102 Total Protein 8.1 Albumin 3.9 Calcium Level 9.4 8.8 Alkaline Phosphatase 79 Aspartate Amino Transf (AST/SGOT) 17 Alanine Aminotransferase (ALT/SGPT) 18 Total Bilirubin 0.9 Sodium Level 135 138 Potassium Level 4.4 4.3 Chloride Level 102 107 Carbon Dioxide Level 26.6 23.4 Anion Gap 6 8 Estimat Glomerular Filtration Rate 55 70 Result Diagram: 02/12/1715 02/12/17814 Imaging Last Impressions Chest X-Ray 02/11/172131 Signed Impressions: Service Date/Time: Saturday, February 11, 2017 22:34 - CONCLUSION: No acute findings. No infiltrate seen. MD Brianna Cooper VTE Risk Assessment Brianna VTE Risk Assessment: Mod/High Risk (score >= 2) Caprini Risk Assessment Model Point Value = 1 Point Value = 2 Point Value = 3 Point Value = 5 Age 41-60 Minor surgery BMI > 25 kg/m2 Swollen legs Varicose veins or History of unexplained or recurrent spontaneous Oral contraceptives or hormone replacement Sepsis (< 1 month) Serious lung disease, including pneumonia (< 1 month) Abnormal pulmonary function Acute myocardial infarction Congestive heart failure (< 1 month) History of inflammatory bowel disease Medical patient at bed rest Age 61-74 Arthroscopic surgery Major open surgery (> 45 min) Laparoscopic surgery (> 45 min) Malignancy Confined to bed (> 72 hours) Immobilizing plaster cast Central venous access Age >= 75 History of VTE Family history of VTE Factor V Leiden Prothrombin [id number] Lupus anticoagulant Anticardiolipin antibodies Elevated serum homocysteine Heparin-induced thrombocytopenia Other congenital or acquired thrombophilia Stroke (< 1 month) Elective arthroplasty Hip, pelvis, or leg fracture Acute spinal cord injury (< 1 month) Prophylaxis Regimen Total Risk Factor Score Risk Level Prophylaxis Regimen 0-1 Low Early ambulation 2 Moderate Order ONE of the following: *Sequential Compression Device (SCD) *Heparin 5000 units SQ BID 3-4 Higher Order ONE of the following medications: *Heparin 5000 units SQ TID *Enoxaparin/Lovenox 40 mg SQ daily (WT < 150 kg, CrCl > 30 mL/min) *Enoxaparin/Lovenox 30 mg SQ daily (WT < 150 kg, CrCl > 10-29 mL/min) *Enoxaparin/Lovenox 30 mg SQ BID (WT < 150 kg, CrCl > 30 mL/min) AND/OR *Sequential Compression Device (SCD) 5 or more Highest Order ONE of the following medications: *Heparin 5000 units SQ TID (Preferred with Epidurals) *Enoxaparin/Lovenox 40 mg SQ daily (WT < 150 kg, CrCl > 30 mL/min) *Enoxaparin/Lovenox 30 mg SQ daily (WT < 150 kg, CrCl > 10-29 mL/min) *Enoxaparin/Lovenox 30 mg SQ BID (WT < 150 kg, CrCl > 30 mL/min) AND *Sequential Compression Device (SCD) Assessment and Plan Problem List: (1) Hemorrhage ICD Codes: R58 - Hemorrhage, not elsewhere classified Status: Acute Plan: An 81-year-old male patient with past medical history which includes hypertension, atrial fibrillation recently on Coumadin then changed to Xarelto 2 days ago, CAD status post coronary artery bypass graft 5, hyperlipidemia, prostate cancer status post radiation and arthritis. Present 2 weeks ago patient had an incisional biopsy done at the oral surgeon's office initially hemostasis was achieved. The patient's Coumadin was changed to Xarelto approximately 2 days ago and then 02/11/2017 he began having spontaneous bleeding from the prior biopsy site on the left posterior mandible. Cleared for DC by Maxillofacial surgery Patient no longer bleeding and requesting to be DC'd home Patient medically stable will DC home (2) Atrial fibrillation, chronic ICD Codes: I48.2 - Chronic atrial fibrillation Status: Chronic Plan: Hold Coumadin and Xarelto resume Xarelto in 3 days rate controlled with BB Assessment and Plan Patient examined. Assessment and plan formulated with Florinda Ch PA-C. I agree with the above. Pt reports NO bleeding from mouth/gums this AM Pt underwent hemostasis effort performed by Dr. Melendez yesterday evening. Pt's labs and vitals are stable this AM. Surgery cleared pt for discharge Full liquid diet, no use of straws. INR 1.8 (02/12) Pt prefers to continue coumadin for his Afib anticoagulation since he has used this successfully for many years Pt does NOT want to take xarelto. Although I did explain the benefits of xarelto vs coumadin hold Coumadin for now repeat INR on 02/15/17 and d/w Dr. Negrete prior to resuming coumadin Pt to keep home BP log F/u with PCP in 2 weeks f/u with Dr. Melendez next week. Florinda Ch Feb 12, 2017 09:27 Alireza Bonilla DO Feb 12, 2017 10:33
[2017-02-12] MEDS: NS + KCL 20 MEQ INJ 1,000 ML IV SCH (09:33)
[2017-02-12] MEDS ORDERED: COUM5TAB PO (10:55)
[2017-02-12] MEDS ORDERED: COUM7.5T PO (10:55)
--- NOTE | 2017-02-12 10:59 | HHI.DCPOC ---
Discharge Care Plan Diagnosis: (1) Atrial fibrillation with rapid ventricular response (2) Hemorrhage Goals to Promote Your Health * To prevent worsening of your condition and complications * To maintain your health at the optimal level Directions to Meet Your Goals Take your medications as prescribed Follow your dietary instruction Follow activity as directed Keep your appointments as scheduled Take your immunizations and boosters as scheduled If your symptoms worsen call your PCP, if no PCP go to Urgent Care Center or Emergency Room Smoking is Dangerous to Your Health. Avoid second hand smoke Call the 24-hour hour crisis hotline for domestic abuse at Alireza Bonilla DO Feb 12, 2017 10:59
[2017-02-13] MEDS ORDERED: CALCTAB94 PO (10:57)
[2017-02-13] MEDS ORDERED: GUAI100S5 PO (10:57)
--- NOTE | 2017-02-14 09:34 | EKG ---
Date Performed: 02/12/2017 Time Performed: 00:18:04 PTAGE: 81 years EKG: ATRIAL FIBRILLATION WITH SLOW VENTRICULAR RESPONSE INFERIOR MYOCARDIAL INFARCTION ABNORMAL ECG PREVIOUS TRACING : 10/31/2016 05.09 Compared to prior tracing no significant change DOCTOR: Valentino Cintron Interpretating Date/Time 02/14/2017 09:33:24
== END 2017-02-12 11:36 | disposition home or self-care (01) ==
LOC: NEPE 15:18 → NEDA 20:52 → NEPHCDU 21:44
PROVIDERS: ADMIT Hospitalist; ATTEND Hospitalist
DX: K91.840 Postprocedural hemorrhage of a digestive system organ or structure following a digestive system procedure (principal); I48.2 Chronic atrial fibrillation; I25.10 Atherosclerotic heart disease of native coronary artery without angina pectoris; I10 Essential (primary) hypertension; K57.92 Diverticulitis of intestine, part unspecified, without perforation or abscess without bleeding; E78.5 Hyperlipidemia, unspecified; E78.00 Pure hypercholesterolemia, unspecified; M19.90 Unspecified osteoarthritis, unspecified site; Z79.01 Long term (current) use of anticoagulants; Z92.3 Personal history of irradiation; Z85.46 Personal history of malignant neoplasm of prostate; Z96.651 Presence of right artificial knee joint; Z95.1 Presence of aortocoronary bypass graft
CPT/HCPCS: 71010; 80048; 80053; 85025; 85610; 85730; 86850; 86900; 86901; 93005; 96365; 96366; 97161; 99285; G0378; G8987; G8988; J3480

== ENCOUNTER → 2017-05-09 | Day surgery (SDC) | payer MEDICARE ==
[~2017-05-09] VITALS: Ht 185.4 cm; Wt 108.1 kg
[~2017-05-09] MED LIST changes: +CALCTAB94 PO; +CHLORHEXIDINE GLUCONATE 0.12% 15 ML CUP ONE; +CHLORHEXIDINE GLUCONATE 2 % 1 PACK (2 CLOTHS) TOPICAL PRN; +CLON0.1T PO; +GUAI100S5 PO; +LACTATED RINGER'S 1000 ML IV PRN; +LIDOCAINE 1%/EPINEPHrine 1:100,000 SOLN 30 ML VIAL ONE; +LIDOCAINE 2%/EPINEPHrine PF 1:200,000 20ML SDV ONE; +METOPROLOL TARTRATE 25 MG TAB PO PRN; +MICROFIBRILLAR COLLAGEN HEMOSTAT 1 GM PKT ONE; +MULTTAB67 PO; +POTA1TAB4 PO; -POTA20TA5 PO; +POVIDONE IODINE 5% (ANTISEPSIS KIT) 4 APPLICATIONS EACH NARE PRN; +SODIUM CHLORID 0.9% 500 ML IV PRN; +SULF1TAB23 PO; +TIMO0.5S30 EACH EYE; +TYLENOL PM PO; +ceFAZolin 1,000 MG/NS 100 ML IV SCH; +cloNIDine HCL 0.1 MG TAB ONE; -guaiFEN-COD 200-20 MG/10ML LIQ PO
[2017-05-09 13:25] VITALS: PULSE 65; RESP 18; TEMP 98.6; O2SAT 98
[2017-05-09 16:05] VITALS: BP 180/100
--- NOTE | 2017-05-10 12:09 | MH ---
cc: Raul Melendez DMD DATE OF ADMISSION: 05/09/2017 HISTORY OF PRESENT ILLNESS: Mr. Lang is a male that was referred by his primary physician, Dr. Negrete, for evaluation of a lesion located on the left mandible. I had seen the patient in December 2016. He was asymptomatic at that time. The lesion was a left posterior mandible, going up through the ascending ramus. It was a well-circumscribed radiolucent lesion, about 23 mm x 14 mm. Intraorally, the tissues were pink and healthy. No expansion was noted. Bite was in occlusion. The patient was seen to be asymptomatic. There was also no facial or no neck edema. No trismus noted. 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 A culture of the site was also taken and came back as MRSA. The patient was treated with Bactrim. Upon subsequent followups, the patient was healing fine. We had planned to do a complete removal of this lesion, enucleation curettage with peripheral ostectomy. The patient came to the hospital several days later spontaneously bleeding from the incisional biopsy site in the left mandible. With local hemostatic measures, I stopped the bleeding in the ED. He was admitted to the hospital for observation. The patient was on Coumadin and then he was subsequently changed to Eliquis 2 days before the spontaneous bleeding. The patient has been replaced back on Coumadin. The patient came back after he was cleared by Dr. Negrete to proceed with the procedure, but then he began to have hypertension, which was not well controlled and he was not compliant with his medications, so we sent him back to Dr. Negrete and now, the blood pressure is better controlled. The procedure today is going to be enucleation and curettage of the cyst/odontogenic keratocyst, left mandible with peripheral ostectomy, possible bone graft and membrane to that site. Benefits, risk, indication of the procedure, procedure in detail, and the options of no treatment were all discussed with this patient. Risks not limited to any postop pain, infection, bleeding, damage to adjacent teeth, soft tissue, hard tissue, anesthesia complications, numbness, recurrence of this lesion, further surgeries including possible resection as required. Reconstructive surgery as required. All questions and concerns were addressed. PAST MEDICAL HISTORY: Hypertension, radiation treatment, ____, glaucoma, ____, sinus problems, MRSA, heart bypass. PAST SURGICAL HISTORY: Appendectomy 20__, right knee replacement 15 years ago, radiation treatment at the age of 72. ANESTHESIA: Previous anesthesia problems denied. INFECTIOUS DISEASE: History of MRSA of the posterior mandible. AUTOIMMUNE DISORDERS: Denied. MEDICATIONS: Alprazolam 0.5 mg oral tablet, atorvastatin calcium 20 mg oral tablet, calcium 600 mg oral tablet, ceftriaxone sodium 1 gram IV solution that was reconstituted. He is on the Rocephin on , Fridays, Tuesday, Tuesday and Tuesday. Clonidine hydrochloride 0.1 mg, dorzolamide hydrochloride, timolol 22.3/6.8, furosemide, potassium tablet 20 mEq 1 tablet extended release, latanoprost 0.005% ophthalmic solution, metoprolol tartrate 25 mg, multivitamin. He was on the Bactrim. Tylenol PM extra strength, vitamin C and the warfarin sodium, which is 5 mg. ALLERGIES: NO KNOWN DRUG ALLERGIES. FAMILY HISTORY: Mother ____. Brother dies of CHF. Brother has Parkinson's. OCCUPATION: He is retired, lives at home with his . Denies tobacco. Eating well. Denies any alcohol. ____ was denied. REVIEW OF SYSTEMS: GENERAL: Weight 228 pounds, height 6 feet 1 inch. Denies any recent significant weight loss. HEAD: Denies any headaches, dizziness, injury or seizures. EYES: Reports vision is good, but denies any double vision, tearing or blind spots. History of glaucoma. NOSE: Denies any bleeding problems, obstruction or discharge. History of sinus problems. MOUTH: He has got ____ difficulty secondary to ____ disease in the left mandible, history of MRSA in the posterior mandible. Denies any gingival bleeding or any dentures. THROAT: Denies any hoarseness, shortness, any thyroid disease. LYMPH NODES: Denies any local or glandular enlargement. RESPIRATORY: Denies any TB, shortness of breath, cough, asthma, COPD or any sleep apnea. History of snoring. CARDIOVASCULAR: Denies any pericardial pain. History of hypertension. Denies any murmurs. Denies any shortness of breath on excursion. Denies any edema. Denies any phlebitis, any rheumatic fever. Heart surgery - he had ____ heart bypass, history of AFib. GASTROINTESTINAL: Denies any gallbladder, IBS or peptic ulcer disease. GENITOURINARY: Denies any history of kidney or renal disease. MUSCULOSKELETAL: Denies any pain, any limitation of movement or muscular weakness. History of arthritis. ENDOCRINE: Denies any diabetes mellitus, hormone therapy or growth disturbances. HEMATOLOGIC: Denies anemia, or any RH incompatibility. History of some bleeding tendency secondary to being on warfarin/Coumadin. NEUROLOGICAL: Denies any sensory or motor deficits. PHYSICAL EXAMINATION: VIAL SIGNS: Pulse is 60, blood pressure is 140/86, oxygen saturation of 97%, ASA is 3. GENERAL: Alert, awake and oriented x 3, well-groomed male in no acute distress. HEAD: Normocephalic. EYES: Pupils equal, round, reactive to light and accommodation. Extraocular movements are intact. NOSE: Airway is pink, symmetrical. MOUTH: Oral ____ pink and well perfused. Previous biopsy site is healing well. He has got an odontogenic keratocyst of the left mandible. No elevation of floor of the mouth or the tongue. No deviation of the uvula. No intraoral expansion noted. Bit is in occlusion. Radiographic data shows a radiolucent lesion, left posterior mandible, well circumscribed, extending from the region of the molar region extending up to the region of the left ascending ramus. NECK: Positive range of movement noted. No tenderness noted. CARDIOVASCULAR: Irregular irregular rhythm. RESPIRATORY: Clear to auscultation bilaterally. ABDOMEN: Nontender, nondistended, soft. Positive bowel sounds. EXTREMITIES: Positive range of movement, upper extremities, lower extremities. NEUROLOGIC: Cranial nerves 2-12 grossly intact. Previous path report is methicillin-resistant Staph aureus, heavy growth. He is only susceptible to gentamicin, linezolid, rifampin, tetracycline, trimethoprim/sulfa and vancomycin. Biopsy report shows left posterior mandible odontogenic keratocyst. Patient has been medically cleared by Dr. Negrete. Patient's latest INR was 2.3 on 05/04/2017. The patient will hold his warfarin for 1 night, the night before the procedure. A 3-lead electrocardiogram shows an irregularly irregular rhythm consistent with atrial fibrillation. IMPRESSION AND PLAN: Mr. Lang is a male born on 1935, with an odontogenic keratocyst, left posterior mandible. The plan today is to do an enucleation curettage of that cyst, peripheral ostectomy and bone graft as needed. Benefits, risks, indications of the procedure and options of treatment were all reviewed with this patient. All questions and concerns were addressed. The patient will be done in the [facility] with the specimen being sent to pathology. Raul Melendez DMD RT/SB , 07:14 PM , 08:24 PM
--- NOTE | 2017-05-10 15:58 | EKG ---
Date Performed: 05/09/2017 Time Performed: 15:51:32 PTAGE: 82 years EKG: ATRIAL FIBRILLATION NONSPECIFIC INTRAVENTRICULAR CONDUCTION DELAY NONSPECIFIC T-WAVE ABNORM ALITY ABNORMAL RHYTHM ECG PREVIOUS TRACING : 02/12/2017 00.18 No significant change from previous tracing noted. DOCTOR: Chadd Burden Interpretating Date/Time 05/10/2017 15:57:08
== END | disposition home or self-care (01) ==
LOC: HSDC 12:30
PROVIDERS: ATTEND Dentist Oral and Maxillofacial Surgery
DX: D16.5 Benign neoplasm of lower jaw bone (principal); Z53.9 Procedure and treatment not carried out, unspecified reason; I48.91 Unspecified atrial fibrillation
CPT/HCPCS: 93005; G0463; 99211